=== PATIENT | male | born 2000 | race Caucasian/White ===

== ENCOUNTER → 2018-07-11 07:31 | Outpatient (CLI) | payer OTHER, SELFPAY ==
--- NOTE | 2018-07-11 08:00 | US_ITS ---
US abdomen limited History:Right upper quadrant pain for 5 days Ordering Physician:Jonathan Rodriguez Patient Age: 17 years Comparison:None Findings: Pancreas:The pancreas is not well delineated and may be better evaluated with CT if clinically warranted Liver:Unremarkable. No obvious mass or abnormal fluid collection. No ductal dilatation Right Kidney:Unremarkable. Normal size and echogenicity. No hydronephrosis Gallbladder:There are scattered small polyps along the wall the gallbladder. There is a small amount sludge. No shadowing stones are evident. Common bile duct is normal at 3 mm. No gallbladder wall thickening. IMPRESSION: Small gallbladder polyps suggesting adenomyomatosis of the gallbladder. Small amount of sludge. No shadowing stones
== END ==
PROVIDERS: Visit Provider Nurse Practitioner Family
DX: R10.11 Right upper quadrant pain (principal); R74.8 Abnormal levels of other serum enzymes
CPT/HCPCS: 76705

== ENCOUNTER 2021-11-27 03:22 | Emergency (ER) | payer BC, SELFPAY ==
--- NOTE | 2021-11-27 03:19 | ECG_ITS ---
APPROVED REPORT Exam: Resting ECG HR:81 bpm ECG Measurements Heart Rate 81 AXES NE 148 P 56 QRSd 96 QRS 90 QT 367 T -5 QTc 405 Conclusion SINUS RHYTHM Inf q waves of questionalble significance noted ABNORMAL ECG UNCONFIRMED REPORT Electronically signed by : Ron Harrington MD 11/29/2021 14:47:54
[2021-11-27 03:22] VITALS: BP 154/84; PULSE 88; RESP 18; TEMP 36.8; O2SAT 99; BMI 40.8
--- NOTE | 2021-11-27 03:36 | XR_ITS ---
PROCEDURE INFORMATION: Exam: XR Chest Exam date and time: 11/27/2021 3:55 AM Age: 21 years old Clinical indication: Sternal or substernal pain; Additional info: Chest pain TECHNIQUE: Imaging protocol: Radiologic exam of the chest. Views: 1 view. COMPARISON: No relevant prior studies available. FINDINGS: Lungs: Unremarkable. No consolidation. Pleural spaces: Unremarkable. No pleural effusion. No pneumothorax. Heart/Mediastinum: Unremarkable. No cardiomegaly. Bones/joints: Unremarkable. IMPRESSION: No acute findings.
[2021-11-27 03:55] LABS: Basophils # 0.2 K/mm3 (0-0.2); Basophils % 2.4 % (0.1-2.0); Eosinophils # 0.4 K/mm3 (0.0-0.4); Hematocrit 48.1 % (42.0-52.0); Hemoglobin 16.6 g/dL (14.1-18.0); Lymphocytes # 2.6 K/mm3 (0.7-4.5); Lymphocytes % 36.3 % (10-50); Mean Corpuscular HGB Conc 34.5 g/dL (31.8-35.4); Mean Corpuscular Hemoglobin 32.2 pg (27.0-31.2); Mean Corpuscular Volume 93.2 fl (80-94); Mean Platelet Volume 10.2 fl (7.4-10.4); Monocytes # 0.4 K/mm3 (0.1-1.0); Neutrophils # 3.6 K/mm3 (1.8-7.8); Neutrophils % 49.3 % (37.0-80.0); Platelet Count 336 K/mm3 (142-424); Red Blood Count 5.16 M/mm3 (4.60-6.20); Red Cell Distribution Width 14.1 % (11.5-17.5); White Blood Count 7.2 K/mm3 (4.8-10.8)
[2021-11-27 04:05] LABS: Alanine Aminotransferase 43 U/L (12-78); Albumin Level 4.7 g/dl (3.5-5.0); Albumin/Globulin Ratio 1.5 (1.1-1.8); Alkaline Phosphatase 53 U/L (38-126); Amylase 66 U/L (30-110); Anion Gap 13.7 mEq/L (5-15); Aspartate Amino Transferase 35 U/L (17-59); Blood Urea Nitrogen 13 mg/dl (9-20); Calcium 9.9 mg/dl (8.4-10.2); Carbon Dioxide 26 mmol/L (22.0-30.0); Chloride 106 mmol/L (98-107); Creatinine Clearance Estimated 317 mL/min (50-200); Estimated Glomerular Filt Rate 140 ml/min (>60); GFR (African American) 169 ML/MIN (>60); Globulin 3.2 g/dL (1.3-3.2); Glucose 137 mg/dl (74-100); Lipase 105 U/L (23-300); Magnesium 1.8 mg/dl (1.6-2.3); Potassium 3.7 mmoL/L (3.5-5.1); Sodium 142 mmol/L (136-145); Total Protein,Serum 7.9 g/dl (6.3-8.2)
[2021-11-27 04:10] LABS: Bilirubin,Total < 0.1 mg/dl (0.2-1.3)
[2021-11-27 04:19] VITALS: BP 117/55; PULSE 84; RESP 17; O2SAT 97
[2021-11-27 04:20] LABS: Troponin I < 0.01 ng/ml (0.00-0.034)
[2021-11-27 04:49] LABS: Hemoglobin A1C 5.1 % (4.0-6.0)
[2021-11-27 05:19] VITALS: BP 119/55; PULSE 81; O2SAT 99
[2021-11-27 06:15] VITALS: BP 114/57; PULSE 68; O2SAT 95
[2021-11-27 06:41] LABS: Troponin I < 0.01 ng/ml (0.00-0.034)
--- NOTE | 2021-11-27 06:48 | HMH.EDCP ---
ED Disposition Clinical Impression: Atypical chest pain Disposition: Home, Self-Care Condition on Discharge: Good Instructions: DI for Atypical Chest Pain Additional Instructions: see pcp for follow up Referrals: Provider,Referral, [Primary Care Provider] - - Critical Care Critical Care Time: No Attestation: On 11/27/21, the high probability of a clinically significant, sudden or life threatening deterioration of the following system(s) required my full and direct attention, intervention and personal management. The time I documented below is in addition to time spent performing reported procedures but includes the following listed in this critical care notation. Medical Decision Making - Medical Records Medical records reviewed: Yes: I reviewed the patient's medical records. - Sid Inquiry Pt receiving controlled substance: No Vital Signs: 11/27/21 03:22 Temperature 98.2 F Temperature Source Oral Pulse Rate [Apical] 88 Respiratory Rate 18 Blood Pressure [Right Arm] 154/84 H Blood Pressure Mean [Right Arm] 107 Blood Pressure Source [Right Arm] Automatic Cuff Blood Pressure Position [Right Arm] Sitting 02 Sat by Pulse Oximetry 99 Oxygen Delivery Method Room Air - Lab Data Lab results reviewed: Yes: I reviewed the patient's lab results. Lab Results 11/27/21 03:46: WBC 7.2, RBC 5.16, Hgb 16.6, Hct 48.1, MCV 93.2, MCH 32.2 H, MCHC 34.5, RDW 14.1, Plt Count 336, MPV 10.2, Neut % (Auto) 49.3, Lymph % (Auto) 36.3, [place] % (Auto) 6.0, Eos % (Auto) 6.0, Baso % (Auto) 2.4 H, Neut # (Auto) 3.6, Lymph # (Auto) 2.6, [place] # (Auto) 0.4, Eos # (Auto) 0.4, Baso # (Auto) 0.2 11/27/21 03:46: Sodium 142, Potassium 3.7, Chloride 106, Carbon Dioxide 26, Anion Gap 13.7, BUN 13, Creatinine 0.70, Estimated Creat Clear 317 H, Estimated GFR 140, Est GFR ( Amer) 169, Glucose 137 H, Calcium 9.9, Magnesium 1.8, Total Bilirubin < 0.1 L, AST 35, ALT 43, Alkaline Phosphatase 53, Troponin I < 0.01, Total Protein 7.9, Albumin 4.7, Globulin 3.2, Albumin/Globulin Ratio 1.5, Amylase 66, Lipase 105 11/27/21 03:46: Hemoglobin A1c 5.1 11/27/21 06:11: Troponin I < 0.01 Result diagrams: 11/27/21 03:46 11/27/21 03:46 Orders (Tests/Meds): ED MEDICATIONS Generic Name Dose Route Start Last Admin Trade Name Freq PRN Reason Stop Dose Admin Sodium Chloride 1,000 mls @ 999 mls/hr 11/27/21 03:45 11/27/21 03:40 Sod Chlor 0.9% 1000ml Bag IV 11/27/21 04:45 999 mls/hr .Q1H1M SUNIL Administration Sodium Chloride 8 ml 11/27/21 03:37 Sodium Chloride 0.9% 10ml Vial IV 12/27/21 03:36 NEEDED PRN dilute pepcid Discontinued Medications Generic Name Dose Route Start Last Admin Trade Name Freq PRN Reason Stop Dose Admin Famotidine 20 mg 11/27/21 03:36 11/27/21 03:40 Famotidine 20mg/2ml Vial IV 11/27/21 03:37 20 mg ONCE ONE Administration Ketorolac Tromethamine 30 mg 11/27/21 03:37 11/27/21 03:40 Ketorolac 30mg/Ml Vial IV 11/27/21 03:38 30 mg ONCE ONE Administration Metoclopramide HCl 10 mg 11/27/21 03:37 11/27/21 03:40 Metoclopramide Hcl 10mg/2ml Vial IVP 11/27/21 03:38 10 mg ONCE ONE Administration ORDERS Category Date Time Status Troponin I Q3H Lab 11/27/21 09:45 Ordered - Radiology Data #1 Image(s): Chest Image Reviewed: Yes I have reviewed radiologist's interpretation Preliminary Findings: Normal/NAD - ECG Data Tracing #1 I reviewed this ECG and interpreted as documented below: Normal Sinus Rhythm: Yes Ischemic changes: non-specific ST-T wave changes Medical Decision Narrative: pt with stable labs and xrays with atypical chest pain - will need to see pcp for more eval Chest Pain HPI - General Chief Complaint: Chest Pain Stated Complaint: chest pain Time Seen by Provider: 11/27/21 04:00 Mode of Arrival: Ambulatory Source of Information: Patient, Medical Record Limitations: No Limitations Description of Symptoms (Recalled f
[2021-11-27 07:02] VITALS: BP 114/57; PULSE 68; RESP 20; TEMP 36.9; O2SAT 100
== END 2021-11-27 07:04 | disposition home or self-care (01) ==
PROVIDERS: Emergency Provider Emergency Medicine
DX: R07.9 Chest pain, unspecified (principal); Z82.49 Family history of ischemic heart disease and other diseases of the circulatory system
CPT/HCPCS: 71045; 80053; 82150; 83036; 83690; 83735; 84484; 85025; 93005; 96361; 96374; 96375; 99285

== ENCOUNTER 2022-09-06 05:41 | Emergency (ER) | payer BC, SELFPAY ==
--- NOTE | 2022-09-06 05:41 | ECG_ITS ---
APPROVED REPORT Exam: Resting ECG HR:86 bpm ECG Measurements Heart Rate 86 AXES ND 171 P 56 QRSd 92 QRS 51 QT 354 T 40 QTc 398 Conclusion SINUS RHYTHM NORMAL ECG UNCONFIRMED REPORT Electronically signed by : Ron Harrington MD 09/07/2022 02:53:37
[2022-09-06 05:42] VITALS: BP 157/68; PULSE 97; RESP 16; TEMP 36.6; O2SAT 100; BMI 36.6
--- NOTE | 2022-09-06 05:43 | XR_ITS ---
PROCEDURE INFORMATION: Exam: XR Chest Exam date and time: 09/06/2022 5:40 AM Age: 22 years old Clinical indication: Left-sided; Patient HX: PT C/O left sided chest pain for several days, now states it hurts on the right side; Additional info: Cp TECHNIQUE: Imaging protocol: Radiologic exam of the chest. Views: 2 views. COMPARISON: CR XR CHEST PORTABLE 11/27/2021 3:55 AM FINDINGS: Lungs: Unremarkable. No consolidation. Pleural spaces: Unremarkable. No pleural effusion. No pneumothorax. Heart/Mediastinum: Unremarkable. No cardiomegaly. Bones/joints: Unremarkable. IMPRESSION: No acute findings.
--- NOTE | 2022-09-06 05:54 | CT_ITS ---
PROCEDURE INFORMATION: Exam: CTA Chest With Contrast Exam date and time: 09/06/2022 6:11 AM Age: 22 years old Clinical indication: Pain; Right-sided and left-sided; Additional info: Cp TECHNIQUE: Imaging protocol: Computed tomographic angiography of the chest with contrast. 3D rendering (Not supervised by radiologist): MIP and/or 3D reconstructed images were created by the technologist. Radiation optimization: All CT scans at this facility use at least one of these dose optimization techniques: automated exposure control; mA and/or kV adjustment per patient size (includes targeted exams where dose is matched to clinical indication); or iterative reconstruction. Contrast material: ISOVUE; Contrast volume: 70 ml; Contrast route: INTRAVENOUS (IV); REPORTING DATA: Count of CT and Cardiac NM exams in prior 12 months: This patient has received 0 known CTs and 0 known cardiac nuclear medicine studies in the 12 months prior to the current study. COMPARISON: CR XR CHEST 2V 09/06/2022 5:40 AM FINDINGS: Pulmonary arteries: The main pulmonary artery is normal in caliber. No pulmonary embolism. Aorta: Unremarkable. No aortic aneurysm. No aortic dissection. Lungs: The lungs are clear. The central airways are patent. Pleural spaces: Unremarkable. No pneumothorax. No pleural effusion. Heart: Unremarkable. No cardiomegaly. No pericardial effusion. Lymph nodes: Unremarkable. No enlarged lymph nodes. Bones/joints: Unremarkable. No acute fracture. Soft tissues: Bilateral gynecomastia. IMPRESSION: 1. The main pulmonary artery is normal in caliber. No pulmonary embolism. 2. The lungs are clear. The central airways are patent.
[2022-09-06 06:00] VITALS: BP 143/69; PULSE 91; O2SAT 99
--- NOTE | 2022-09-06 06:00 | HMH.EDCP ---
Discharge Plan Disposition Patient Disposition: Home, Self-Care Chief Complaint: Chest Pain Prescriptions Prescriptions: No Action No Known Home Medications Clinical Impressions Clinical Impression: Atypical chest pain Instructions Patient Instructions: DI for Atypical Chest Pain Discharge ED Provider: Windy THOMAS)Christofer Chest Pain HPI General Chief Complaint: Chest Pain Stated Complaint: cp Time Seen by Provider: 09/06/22 06:00 Mode of Arrival: Ambulatory Source of Information: Patient and Medical Record Limitations: No Limitations Description of Symptoms (Recalled from ER Triage Doc. by RN): pt c/o pain that started in lt armpit that radiates to his chest since saturday History of Present Illness HPI narrative: pt with lt sided chest pain with sob - no fever or rash and no trauma MD complaint: chest pain indicative of cardiac Onset (ago): day(s) Duration: intermittent Activity at onset: during rest Pain location: left chest Severity: moderate Quality: sharp Risk Factors for CAD: Family Hx of CAD Treatments prior to or on arrival for Cardiac Chest Pain: none DINORAH Score for Non-Stemi Age of Patient: <30 years old Heart Rate: 70-89 bpm Systolic Blood Pressure: 120-139 mmhg Serum Creatinine: 0.80-1.19 mg/dl CHF [place] Class: I-No CHF Other Risk Factors: None Non-Stemi Risk Score: 50 Risk Stratification: 1-108 = Low Risk Related Data Home Medications Medication Instructions Recorded Confirmed No Known Home Medications 09/03/18 09/03/18 Allergies Allergy/AdvReac Type Severity Reaction Status Date / Time No Known Allergies Allergy Verified 09/03/18 13:26 [facility] Disclaimer: The information contained in this section may have been updated after the patient was seen, as this information can be updated by other users. 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 Smoking Status: Never smoker alcohol intake: never substance use type: denies use current occupational status: employed Travel in the last 8 weeks: None household members: family housing: house ROS Obtained: Yes All systems reviewed & no additional complaints except as documented Physical Exam General General appearance: alert Head Head exam: normocephalic Eye Eye exam: Present PERRL and EOMI ENT ENT exam: Present mucous membranes moist Neck Neck exam: Present trachea midline Respiratory Respiratory exam: Absent respiratory distress Cardiovascular Cardiovascular exam: Present regular rate Abdominal Exam Abdominal exam: Present soft Extremities Exam Extremities exam: Present full ROM; Absent calf tenderness Neurological Exam Neurological exam: Present alert, oriented X3 and CN II-XII intact; Absent motor sensory deficit Psychiatric Psychiatric exam: Present normal affect Skin Skin exam: Absent rash Medical Decision Making Medical Records Medical records reviewed: Yes I reviewed the patient's medical records. Sid Inquiry Pt receiving controlled substance: No Vital Signs: 09/06/22 05:42 09/06/22 06:00 09/06/22 06:30 Temperature 97.9 F Temperature Source Oral Pulse Rate 91 H 73 Pulse Rate [Right] 97 H Respiratory Rate 16 Blood Pressure 143/69 H 128/51 L Blood Pressure [Right Arm] 157/68 H Blood Pressure Mean Blood Pressure Mean [Right Arm] 97 02 Sat by Pulse Oximetry 100 99 98 Oxygen Delivery Method Room Air Room Air 09/06/22 07:30 Temperature Temperature Source Pulse Rate 73 Pulse Rate [Right] Respiratory Rate Blood Pressure 129/66 Blood Pressure [Right Arm] Blood Pressure Mean 81 Blood Pressure Mean [Right Arm] 02 Sat by Pulse Oximetry 98 Oxygen Delivery Method Room Air Lab Data Lab results reviewed: Yes I reviewed the patient's lab results. Lab Results 09/06/22 05:45: WBC 7.2, RBC 5.12, Hgb 15.9, Hct 49.3, MCV 96.2 H, MCH 31.0, MCHC 32.2, RDW 13.6, Plt Count 343, MPV 9.4, Neut % (Auto) 48.9, Lymph % (Auto) 40.4, [place] % (Auto) 5.3, Eos % (Auto) 4.3, Baso %
[2022-09-06 06:04] LABS: Basophils # 0.1 K/mm3 (0-0.2); Basophils % 1.1 % (0.1-2.0); Eosinophils # 0.3 K/mm3 (0.0-0.4); Eosinophils % 4.3 % (0.1-12.0); Hematocrit 49.3 % (42.0-52.0); Hemoglobin 15.9 g/dL (14.1-18.0); Lymphocytes # 2.9 K/mm3 (0.7-4.5); Lymphocytes % 40.4 % (10-50); Mean Corpuscular HGB Conc 32.2 g/dL (31.8-35.4); Mean Corpuscular Volume 96.2 fl (80-94); Mean Platelet Volume 9.4 fl (7.4-10.4); Monocytes # 0.4 K/mm3 (0.1-1.0); Monocytes % 5.3 % (1.7-9.3); Neutrophils # 3.5 K/mm3 (1.8-7.8); Neutrophils % 48.9 % (37.0-80.0); Platelet Count 343 K/mm3 (142-424); Red Blood Count 5.12 M/mm3 (4.60-6.20); Red Cell Distribution Width 13.6 % (11.5-17.5); White Blood Count 7.2 K/mm3 (4.8-10.8)
[2022-09-06 06:09] LABS: Chloride 103 mmol/L (98-107); Sodium 142 mmol/L (136-145)
[2022-09-06 06:10] LABS: Potassium 3.3 mmoL/L (3.5-5.1)
[2022-09-06 06:12] LABS: Blood Urea Nitrogen 13 mg/dl (9-20); Creatinine Clearance Estimated 219 mL/min (50-200); Estimated Glomerular Filt Rate 104 ml/min (>60); GFR (African American) 125 ML/MIN (>60)
[2022-09-06 06:13] LABS: Anion Gap 13.3 mEq/L (5-15); Calcium 9.6 mg/dl (8.4-10.2); Carbon Dioxide 29 mmol/L (22.0-30.0); Glucose 65 mg/dl (74-100)
[2022-09-06 06:27] LABS: Troponin I < 0.01 ng/ml (0.00-0.034)
[2022-09-06 06:30] VITALS: BP 128/51; PULSE 73; O2SAT 98
[2022-09-06 06:31] LABS: Free T4 (Free Thyroxine) 1.11 ng/dl (0.78-2.19)
[2022-09-06 06:44] LABS: Thyroid Stimulating Hormone 4.11 uIU/mL (0.465-4.68)
--- NOTE | 2022-09-06 07:24 | PC.NURSE ---
Assumed pt care. Pt updated on ED visit, awaiting CT results. No further complaints at this time.
[2022-09-06 07:30] VITALS: BP 129/66; PULSE 73; O2SAT 98
--- NOTE | 2022-09-06 07:42 | PC.NURSE ---
MD to bedside discussing final results and pending discharge.
[2022-09-06 07:44] VITALS: BP 129/66; PULSE 74; RESP 16; TEMP 36.6; O2SAT 99
== END 2022-09-06 07:51 | disposition home or self-care (01) ==
PROVIDERS: Emergency Provider Emergency Medicine
DX: R07.89 Other chest pain (principal)
CPT/HCPCS: 71046; 71275; 80048; 84439; 84443; 84484; 85025; 93005; 96374; 99285; Q9967

== ENCOUNTER 2022-11-17 04:08 | Emergency (ER) | payer BC, SELFPAY ==
[2022-11-17 04:09] VITALS: BP 142/90; PULSE 76; RESP 16; TEMP 36.6; O2SAT 98; BMI 38.0
[2022-11-17 04:16] VITALS: BP 142/90; PULSE 86; O2SAT 99
--- NOTE | 2022-11-17 04:23 | CT_ITS ---
PROCEDURE INFORMATION: Exam: CT Lumbar Spine Without Contrast Exam date and time: 11/17/2022 4:34 AM Age: 22 years old Clinical indication: Low back pain; Additional info: Pain radiating RT leg TECHNIQUE: Imaging protocol: Computed tomography of the lumbar spine without contrast. Radiation optimization: All CT scans at this facility use at least one of these dose optimization techniques: automated exposure control; mA and/or kV adjustment per patient size (includes targeted exams where dose is matched to clinical indication); or iterative reconstruction. REPORTING DATA: Count of CT and Cardiac NM exams in prior 12 months: This patient has received [address] and 0 known cardiac nuclear medicine studies in the 12 months prior to the current study. COMPARISON: No relevant prior studies available. FINDINGS: Bones/joints: No acute fracture. Normal alignment. There is a 4-5 mm median disc protrusion with calcified annulus at L5-S1. Soft tissues: Unremarkable. IMPRESSION: 1. Degenerative disc disease at L5-S1 with a 5 mm median disc protrusion. 2. No acute findings. No acute fracture or dislocation.
--- NOTE | 2022-11-17 04:31 | PC.NURSE ---
patient gone to RAD at this time.
[2022-11-17 04:38] LABS: Basophils % 0.5 % (0.1-2.0); Eosinophils # 0.5 K/mm3 (0.0-0.4); Eosinophils % 5.4 % (0.1-12.0); Hematocrit 47.6 % (42.0-52.0); Hemoglobin 15.6 g/dL (14.1-18.0); Lymphocytes # 3.1 K/mm3 (0.7-4.5); Lymphocytes % 36.9 % (10-50); Mean Corpuscular HGB Conc 32.7 g/dL (31.8-35.4); Mean Corpuscular Hemoglobin 30.9 pg (27.0-31.2); Mean Corpuscular Volume 94.2 fl (80-94); Mean Platelet Volume 8.9 fl (7.4-10.4); Monocytes # 0.3 K/mm3 (0.1-1.0); Monocytes % 3.1 % (1.7-9.3); Neutrophils # 4.5 K/mm3 (1.8-7.8); Neutrophils % 54.1 % (37.0-80.0); Platelet Count 284 K/mm3 (142-424); Red Blood Count 5.05 M/mm3 (4.60-6.20); Red Cell Distribution Width 13.9 % (11.5-17.5); White Blood Count 8.3 K/mm3 (4.8-10.8)
[2022-11-17 04:46] LABS: Alanine Aminotransferase 41 U/L (12-78); Albumin/Globulin Ratio 1.5 (1.1-1.8); Alkaline Phosphatase 57 U/L (38-126); Anion Gap 18.6 mEq/L (5-15); Aspartate Amino Transferase 35 U/L (17-59); Bilirubin,Total 0.4 mg/dl (0.2-1.3); Blood Urea Nitrogen 14 mg/dl (9-20); Calcium 9.6 mg/dl (8.4-10.2); Carbon Dioxide 28 mmol/L (22.0-30.0); Chloride 100 mmol/L (98-107); Creatinine Clearance Estimated 256 mL/min (50-200); Estimated Glomerular Filt Rate 119 ml/min (>60); GFR (African American) 144 ML/MIN (>60); Globulin 3.4 g/dL (1.3-3.2); Glucose 103 mg/dl (74-100); Potassium 3.6 mmoL/L (3.5-5.1); Sodium 143 mmol/L (136-145); Total Protein,Serum 8.4 g/dl (6.3-8.2)
[2022-11-17 05:05] LABS: Procalcitonin 0.038 ng/mL (0.0-2.0)
[2022-11-17 05:13] LABS: Erythrocyte Sedimentation Rate 5 mm/hr (0-15)
--- NOTE | 2022-11-17 06:12 | HMH.EDBACK ---
Discharge Plan Disposition Patient Disposition: Home, Self-Care Prescriptions Prescriptions: New prednisone [prednisone] 20 mg tablet 20 mg PO BID Qty: 10 0RF ketorolac 10 mg tablet 10 mg PO Q8H PRN (Reason: pain) 3 Days Qty: 10 0RF cyclobenzaprine 10 mg tablet 10 mg PO BID PRN (Reason: muscle spasm) Qty: 10 0RF Referrals Follow up/Referrals: Provider,Referral, MD [Primary Care Provider] - See instructions Clinical Impressions Clinical Impression: Lumbar radiculopathy Instructions Patient Instructions: DI for Back Pain With Sciatica Discharge ED Provider: Windy (ED)Christofer Back Pain HPI General Chief Complaint: Back Pain/Injury Stated Complaint: Low back pain, pain down leg, tick bite 2 wks ago Time Seen by Provider: 11/17/22 05:30 Mode of Arrival: Ambulatory Source of Information: Patient and Medical Record Limitations: No Limitations Description of Symptoms (Recalled from ER Triage Doc. by RN): pt c/o lower back pain radiating down rt leg x 2 weeks pt denies any trauma or accident. History of Present Illness HPI Narrative: lower back pain over the last 2 weeks with rad to lower ext - no cauda equina sx and no fever/rash or trauma - MD Complaint: back pain Onset (ago): day(s) Duration: intermittent Similar Symptoms Previously: No Location: lumbar spine Severity: moderate Quality: sharp Radiation: right leg Exacerbating factors: movement Associated symptoms: denies other symptoms Related Data Previous Rx's Medication Instructions Recorded cyclobenzaprine 10 mg tablet 10 mg PO BID PRN muscle spasm #10 11/17/22 tabs ketorolac 10 mg tablet 10 mg PO Q8H PRN pain 3 days #10 11/17/22 tabs prednisone 20 mg tablet 20 mg PO BID #10 tabs 11/17/22 Allergies Allergy/AdvReac Type Severity Reaction Status Date / Time No Known Allergies Allergy Verified 09/03/18 13:26 [facility] Disclaimer: The information contained in this section may have been updated after the patient was seen, as this information can be updated by other users. 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 Smoking Status: Never smoker alcohol intake: never substance use type: denies use current occupational status: employed Travel in the last 8 weeks: None household members: family housing: house ROS Obtained: Yes All systems reviewed & no additional complaints except as documented Physical Exam General General appearance: alert Head Head exam: normocephalic Eye Eye exam: Present PERRL and EOMI ENT ENT exam: Present mucous membranes moist Neck Neck exam: Present trachea midline Respiratory Respiratory exam: Absent respiratory distress Cardiovascular Cardiovascular exam: Present regular rate Abdominal Exam Abdominal exam: Present soft; Absent tenderness or guarding Extremities Exam Extremities exam: Present full ROM Back Exam Back exam: Present tenderness; Absent full ROM Neurological Exam Neurological exam: Present alert, oriented X3 and CN II-XII intact; Absent motor sensory deficit Psychiatric Psychiatric exam: Present normal affect Skin Skin exam: Absent rash Medical Decision Making Medical Records Medical records reviewed: Yes I reviewed the patient's medical records. Sid Inquiry Pt receiving controlled substance: No Vital Signs: 11/17/22 04:09 11/17/22 04:16 Temperature 98 F Temperature Source Oral Pulse Rate 86 Pulse Rate [Right] 76 Respiratory Rate 16 Blood Pressure 142/90 H Blood Pressure [Right Arm] 142/90 H Blood Pressure Mean [Right Arm] 107 02 Sat by Pulse Oximetry 98 99 Lab Data Lab results reviewed: Yes I reviewed the patient's lab results. Lab Results 11/17/22 04:32: WBC 8.3, RBC 5.05, Hgb 15.6, Hct 47.6, MCV 94.2 H, MCH 30.9, MCHC 32.7, RDW 13.9, Plt Count 284, MPV 8.9, Neut % (Auto) 54.1, Lymph % (Auto) 36.9, [place] % (Auto) 3.1, Eos % (Auto) 5.4, Baso % (Auto) 0.5, Neut # (Auto) 4.5, Lymph # (Auto) 3.1, [place] # (Auto) 0.3, Eos # (Auto) 0.5 H, Baso # (Auto)
[2022-11-17 06:16] VITALS: BP 137/81; PULSE 72; RESP 16; TEMP 36.6; O2SAT 98
== END 2022-11-17 06:27 | disposition home or self-care (01) ==
PROVIDERS: Emergency Provider Emergency Medicine
DX: M54.16 Radiculopathy, lumbar region (principal)
CPT/HCPCS: 72131; 80053; 84145; 85025; 85651; 86140; 99284; 99285

== ENCOUNTER 2022-12-30 18:27 | Emergency (ER) | payer BC, SELFPAY ==
[2022-12-30 18:40] VITALS: BP 141/63; PULSE 99; RESP 20; TEMP 37; O2SAT 99; BMI 38.0
--- NOTE | 2022-12-30 19:00 | EXP.UTC ---
Discharge Plan Disposition Patient Disposition: Home, Self-Care Condition: Good Prescriptions Prescriptions: New amoxicillin 875 mg tablet 875 mg PO BID Qty: 20 0RF ciprofloxacin-dexamethasone [Ciprodex] 0.3-0.1 % drops,suspension 4 drp otic (ear) Q12H 7 Days Qty: 7.5 0RF Rx Instructions: in left ear Referrals Follow up/Referrals: Provider,Referral, MD [Primary Care Provider] - See instructions Activity Restrictions/Add. Instructions Additional Instructions/Restrictions: Use drops as prescribed Take oral antibiotics as prescribed Follow up with ENT if no improvement or any worsening of symptoms Straight to ER if any life threatening symptoms Clinical Impressions Clinical Impression: Otitis media Qualifiers: Otitis media type: unspecified Laterality: left Qualified Code(s): H66.92 - Otitis media, unspecified, left ear Otitis externa Qualifiers: Otitis externa type: unspecified type Chronicity: unspecified Laterality: left Qualified Code(s): H60.92 - Unspecified otitis externa, left ear Instructions Patient Instructions: Middle Ear Infection, DI for Otitis Externa Discharge ED Provider: Minerva Moran [facility] General Stated complaint: LT ear feels 'stopped up Mode of Arrival: Ambulatory Source of Information: Patient Limitations: No Limitations Time Seen by Provider: 12/30/22 19:00 Description of Symptoms (Recalled from Triage Doc. by RN): PATIENT C/O DECREASED HEARING AND RINGING TO LEFT EAR THAT STARTED SATURDAY HEENT Symptoms (Recalled from RN notes): Yes Resp Symptoms (Recalled from RN notes): No Skin Symptoms (Recalled from RN notes): No MS Symptoms (Recalled from RN notes): No Functional Status (Recalled from RN notes): WNL History of Present Illness Provider Complaint: Patient states that he has been having pain in his left ear for several days that has continued to get worse State that he noticed it felt full and had decreased hearing in it States that he tried to clean it out with a qtip and the pain got worse so he came in to get it checked out thinking he may have an ear infection Related Data Previous Rx's Medication Instructions Recorded amoxicillin 875 mg tablet 875 mg PO BID #20 tabs 12/30/22 ciprofloxacin 0.3 %-dexamethasone 4 drp otic (ear) Q12H 7 days #7.5 12/30/22 0.1 % ear drops,suspension mL (Ciprodex) Allergies Allergy/AdvReac Type Severity Reaction Status Date / Time No Known Allergies Allergy Verified 09/03/18 13:26 Worker's Comp Is this a Worker's Comp case?: No [facility] Disclaimer: The information contained in this section may have been updated after the patient was seen, as this information can be updated by other users. 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 Smoking Status: Never smoker alcohol intake: never substance use type: denies use current occupational status: employed Travel in the last 8 weeks: None household members: family housing: house ROS Obtained: Yes All systems reviewed & no additional complaints except as documented and Yes Systems reviewed as appropriate & no additional complaints except as documented Constitutional Constitutional: Reports system reviewed and no additional complaints, except as documented and Reports as per HPI ENT Ears, Nose, Mouth, and Throat: Reports system reviewed and no additional complaints, except as documented, Reports as per HPI and Reports otalgia Cardiovascular Cardiovascular: Reports system reviewed and no additional complaints, except as documented and Reports as per HPI Respiratory Respiratory: Reports system reviewed and no additional complaints, except as documented and Reports as per HPI Gastrointestinal Gastrointestingal: Reports system reviewed and no additional complaints, except as documented and as per HPI Musculoskeletal Musculoskeletal: Reports system reviewed and no additional complaints, except as documented and Reports as per HPI Neurologic Neurologic: Reports system reviewed and no
[2022-12-30 19:12] VITALS: BP 141/63; PULSE 99; RESP 20; TEMP 37; O2SAT 99
== END 2022-12-30 19:16 | disposition home or self-care (01) ==
PROVIDERS: Emergency Provider Nurse Practitioner
DX: H66.92 Otitis media, unspecified, left ear (principal); H60.92 Unspecified otitis externa, left ear
CPT/HCPCS: 99204; 99212; G0463

== ENCOUNTER 2023-05-09 03:55 | Emergency (ER) | payer BC, SELFPAY ==
[2023-05-09 04:04] VITALS: BP 148/98; PULSE 80; RESP 18; TEMP 36.9; O2SAT 97; BMI 40.0
--- NOTE | 2023-05-09 04:05 | XR_ITS ---
PROCEDURE INFORMATION: Exam: XR Chest Exam date and time: 05/09/2023 4:04 AM Age: 22 years old Clinical indication: Injury or trauma; Blunt trauma (contusions or hematomas); Patient HX: Fall from bed Saturday, C/O worsening left sided pain; Additional info: Fall, L rib pain TECHNIQUE: Imaging protocol: Radiologic exam of the chest. Views: 2 views. COMPARISON: CT ANGIO CHEST PE PROTOCOL 09/06/2022 6:11 AM FINDINGS: Lungs: Unremarkable. No consolidation. Pleural spaces: Unremarkable. No pleural effusion. No pneumothorax. Heart/Mediastinum: Unremarkable. No cardiomegaly. Bones/joints: Unremarkable. IMPRESSION: No acute findings.
--- NOTE | 2023-05-09 04:11 | HMH.EDGENADL ---
Discharge Plan Disposition Patient Disposition: Home, Self-Care Condition: Good Prescriptions Prescriptions: No Action amoxicillin 875 mg tablet 875 mg PO BID Qty: 20 0RF ciprofloxacin-dexamethasone [Ciprodex] 0.3-0.1 % drops,suspension 4 drp otic (ear) Q12H 7 Days Qty: 7.5 0RF Rx Instructions: in left ear Referrals Follow up/Referrals: Provider,Referral, MD [Primary Care Provider] - See instructions Activity Restrictions/Add. Instructions Additional Instructions/Restrictions: You were evaluated in the emergency department today. Please take Tylenol and ibuprofen at home as needed for pain. Return to the emergency department for new or worsening symptoms. Clinical Impressions Clinical Impression: Contusion of rib on left side Instructions Patient Instructions: DI for Rib Contusion, DI for Acute Pain -- Adult Discharge ED Provider: Hayley Meade General Adult HPI General Chief complaint: PAIN Stated complaint: AO 05/07/23 2300 fell out of bed injury left rib Time Seen by Provider: 05/09/23 03:58 Mode of Arrival: Ambulatory Limitations: No Limitations Description of Symptoms (Recalled from ER Triage Doc. by RN): Pt states he rolled out of bed Saturday night and hit his left side on his bedside table. Pt reports worsening pain since saturday, and wants to make sure he didn't break his rib. Pt denies SOA, or any other symptoms. History of Present Illness HPI narrative: This patient is a 22-year-old male who denies significant past medical history presenting to the emergency department for evaluation with concern for left rib pain that is worse with movement. He states that on Saturday, he rolled out of bed and hit his left side on his bedside table. The pain was initially fine, but it is gradually gotten worse over the last few days. Given this, he decided to come in for evaluation to make sure that he does not have a broken rib. He denies any other pain or injuries. He denies any shortness of breath. No other concerns noted at this time. Related Data Previous Rx's Medication Instructions Recorded amoxicillin 875 mg tablet 875 mg PO BID #20 tabs 12/30/22 ciprofloxacin 0.3 %-dexamethasone 4 drp otic (ear) Q12H 7 days #7.5 12/30/22 0.1 % ear drops,suspension mL (Ciprodex) Allergies Allergy/AdvReac Type Severity Reaction Status Date / Time No Known Allergies Allergy Verified 09/03/18 13:26 [facility] Disclaimer: The information contained in this section may have been updated after the patient was seen, as this information can be updated by other users. 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 Smoking Status: Unknown if ever smoked alcohol intake: never substance use type: denies use current occupational status: employed Travel in the last 8 weeks: None household members: family housing: house ROS Obtained: Yes All systems reviewed & no additional complaints except as documented Physical Exam General General appearance: alert and in no apparent distress Head Head exam: atraumatic and normocephalic Eye Eye exam: Present normal appearance, PERRL and EOMI ENT ENT exam: Present normal exam, normal oropharynx, mucous membranes moist and normal external ear exam Neck Neck exam: Present normal inspection, full ROM and trachea midline; Absent tenderness Chest Chest inspection: Present symmetric chest wall rise and tenderness (Left chest wall tenderness. Pain is reproducible with palpation. No significant bruising, deformity, or palpable crepitus.) Respiratory Respiratory exam: Present normal lung sounds bilaterally; Absent respiratory distress, wheezes, stridor or accessory muscle use Cardiovascular Cardiovascular exam: Present regular rate and normal rhythm Abdominal Exam Abdominal exam: Present soft; Absent distention, tenderness or guarding Extremities Exam Extremities exam: Present normal inspection, full ROM and normal capillary refill;
[2023-05-09 05:48] VITALS: BP 128/85; PULSE 75; RESP 18; TEMP 36.8; O2SAT 96
== END 2023-05-09 05:49 | disposition home or self-care (01) ==
PROVIDERS: Emergency Provider Emergency Medicine
DX: S20.212A Contusion of left front wall of thorax, initial encounter (principal); E66.9 Obesity, unspecified; W06.XXXA Fall from bed, initial encounter
CPT/HCPCS: 71046; 99283

== ENCOUNTER 2023-06-15 03:53 | Emergency (ER) | payer BC, SELFPAY ==
[2023-06-15 04:02] VITALS: BP 156/86; PULSE 88; RESP 18; TEMP 36.8; O2SAT 98; BMI 40.6
[2023-06-15 04:20] VITALS: BP 156/86; PULSE 87; RESP 18; TEMP 36.8
--- NOTE | 2023-06-15 04:42 | ED_ITS ---
Discharge Plan Disposition Patient Disposition: Home, Self-Care Prescriptions Prescriptions: New amoxicillin-pot clavulanate 875-125 mg tablet 1 tab PO BID Qty: 20 0RF No Action amoxicillin 875 mg tablet 875 mg PO BID Qty: 20 0RF ciprofloxacin-dexamethasone [Ciprodex] 0.3-0.1 % drops,suspension 4 drp otic (ear) Q12H 7 Days Qty: 7.5 0RF Rx Instructions: in left ear Activity Restrictions/Add. Instructions Additional Instructions/Restrictions: You were evaluated in the emergency department today. Please follow-up with a primary care provider over the next 3 days for reassessment. legal support specialist your prescription for antibiotic and take as prescribed. Return to the emergency department for any new or worsening symptoms. Clinical Impressions Clinical Impression: Cellulitis of face Instructions Patient Instructions: DI for Cellulitis -- Adult Discharge ED Provider: Hayley Meade General Adult HPI General Chief complaint: PAIN Stated complaint: Lump on left jaw for 2 days Time Seen by Provider: 06/15/23 04:07 Mode of Arrival: Ambulatory Source of Information: Patient Limitations: No Limitations Description of Symptoms (Recalled from ER Triage Doc. by RN): 156/86 History of Present Illness HPI narrative: This patient is a 22-year-old male who denies significant past medical history presenting to the emergency department for evaluation with concern for a bump on the left side of his lower jaw. Patient reports that he noticed this yesterday, and it is painful to the touch. He states that it feels like a lump just under his skin on the lower side of his face. He denies any dental issues or dental pain. No significant oral swelling. No systemic symptoms such as fevers, chills, or other concerns. 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 No difficulty swallowing, trismus, or other issues noted. Related Data Previous Rx's Medication Instructions Recorded amoxicillin 875 mg tablet 875 mg PO BID #20 tabs 12/30/22 ciprofloxacin 0.3 %-dexamethasone 4 drp otic (ear) Q12H 7 days #7.5 12/30/22 0.1 % ear drops,suspension mL (Ciprodex) amoxicillin 875 mg-potassium 1 tab PO BID #20 tabs 06/15/23 clavulanate 125 mg tablet Allergies Allergy/AdvReac Type Severity Reaction Status Date / Time No Known Allergies Allergy Verified 09/03/18 13:26 [facility] Disclaimer: The information contained in this section may have been updated after the patient was seen, as this information can be updated by other users. 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 Smoking Status: Never smoker alcohol intake: never substance use type: denies use current occupational status: employed Travel in the last 8 weeks: None household members: family housing: house ROS Obtained: Yes All systems reviewed & no additional complaints except as documented Physical Exam General General appearance: alert, in no apparent distress and obese Head Head exam: atraumatic, normocephalic and other (Mild erythema to the left side of the lower face with a very small pea-sized lump that is tender just under the skin. No palpable fluctuance. No significant swelling.) Eye Eye exam: Present normal appearance, PERRL and EOMI ENT ENT exam: Present normal exam, normal oropharynx, mucous membranes moist, normal external ear exam and other (No trismus, subungual swelling, drooling, or other concerns) Neck Neck exam: Present normal inspection, full ROM and trachea midline; Absent tenderness Chest Chest inspection: Present normal inspection and symmetric chest wall rise; Absent tenderness Respiratory Respiratory exam: Present normal lung sounds bilaterally; Absent respiratory d istress, wheezes, stridor or accessory muscle use Cardiovascular Cardiovascular exam: Present regular rate and normal rhythm Abdominal Exam Abdominal exam: Present soft; Absent distention, tenderness or guarding Extremities Exam Extremities exam: Present normal inspection, full ROM and normal capillary refill; Absent tenderness or edema Back Exam Back exam: Present normal inspection and full ROM; Absent tenderness Neurological Exam Neurological exam: Present alert, oriented X3, CN II-XII intact and normal gait; Absent motor sensory deficit Psychiatric Psychiatric exam: Present normal affect and normal mood Skin Skin exam: Present warm and dry Medical Decision Making Medical Records Medical records reviewed: Yes I reviewed the patient's medical records. Sid Inquiry Pt receiving controlled substance: No Vital Signs: 06/15/23 04:02 06/15/23 04:20 Temperature 98.2 F 98.2 F Temperature Source Oral Oral Pulse Rate 87 Pulse Rate [Radial] 88 Respiratory Rate 18 18 Blood Pressure 156/86 H Blood Pressure [Right Arm] 156/86 H Blood Pressure Mean [Right Arm] 109 02 Sat by Pulse Oximetry 98 Oxygen Delivery Method Room Air Lab Data Lab results reviewed: Yes I reviewed the patient's lab results. Medical Decision Narrative: In summary, this patient is a 22-year-old male presenting to the Emergency Department for evaluation of a lump to his left lower jaw. Differential diagnoses considered include but are not limited to cellulitis, abscess, sialoadenitis, lymphadenopathy. Ruling out the most morbid conditions drove assessment. It should be noted patient's history includes obesity which is not at goal therapy. This complicates all aspects of care by increasing patient's risk for morbidity. On exam, the patient is well-appearing with reassuring vital signs on cardiac telemetry. He is mildly hypertensive, but he also admits that he is anxious. He has a very tiny pea-sized lump on the left lower jaw with some overlying erythema. This could simply be cystic acne or an ingrown hair. No concerns for drainable abscess based on clinical exam. Given the mild overlying erythema, it is possibly could be developing a mild cellulitis. No alarm findings concerning for deep space infection. Based on reassuring history and exam, I do not feel labs or imaging are indicated. Given this, feel the patient appropriate for discharge with prescription for Augmentin. He was also given referral to primary care, as he unfortunately does not have a primary care provider. I counseled him on the importance of outpatient follow-up. He was given strict return precautions, and he was discharged in stable condition after all questions were answered. Critical Care Critical Care Time Critical Care Time: No
== END 2023-06-15 04:26 | disposition home or self-care (01) ==
LOC: ER 04:25
PROVIDERS: Emergency Provider Emergency Medicine
DX: L03.211 Cellulitis of face (principal)
CPT/HCPCS: 99283

== ENCOUNTER 2023-07-13 03:50 | Emergency (ER) | payer BC, SELFPAY ==
[2023-07-13 03:51] VITALS: BP 136/79; PULSE 77; RESP 18; TEMP 36.6; O2SAT 98; BMI 40.6
--- NOTE | 2023-07-13 03:53 | ECG_ITS ---
APPROVED REPORT Exam: Resting ECG HR:80 bpm ECG Measurements Heart Rate 80 AXES VA 152 P 48 QRSd 108 QRS 102 QT 373 T -4 QTc 409 Conclusion SINUS RHYTHM RIGHT AXIS DEVIATION - ? lead placement issues Inferior q waves noted - questionable significance given their morphology ABNORMAL ECG UNCONFIRMED REPORT Electronically signed by : Ron Harrington MD 07/13/2023 21:17:07
[2023-07-13 03:59] VITALS: PULSE 77
--- NOTE | 2023-07-13 03:59 | ED_ITS ---
Discharge Plan Disposition Patient Disposition: Home, Self-Care Prescriptions Prescriptions: No Action amoxicillin 875 mg tablet 875 mg PO BID Qty: 20 0RF ciprofloxacin-dexamethasone [Ciprodex] 0.3-0.1 % drops,suspension 4 drp otic (ear) Q12H 7 Days Qty: 7.5 0RF Rx Instructions: in left ear amoxicillin-pot clavulanate 875-125 mg tablet 1 tab PO BID Qty: 20 0RF Activity Restrictions/Add. Instructions Additional Instructions/Restrictions: Please follow-up with your primary care provider. Please return to the emerg ency department if you develop any new or worsening symptoms or become concerned for your health. Clinical Impressions Clinical Impression: Chest pain, Numbness and tingling of left hand Discharge ED Provider: Devon Perez Adult HPI General Chief complaint: Chest Pain Stated complaint: chest pain, arm tingling x7 days Time Seen by Provider: 07/13/23 03:55 Mode of Arrival: Family Vehicle Source of Information: Patient Limitations: No Limitations Description of Symptoms (Recalled from ER Triage Doc. by RN): 22 y/o male presents to ED for chest tenderness and L arm/wrist pain X 7 days. History of Present Illness HPI narrative: 22-year-old male with history of obesity presents with multiple complaints. He reports that he works at [employer] and he hit his chest on something at work a few days ago. Since that time he has been having left-sided chest pain. It is tender to palpation at this point as well. He also reports that he has started developing left upper extremity symptoms. He reports that he has some tingling in the left pinky finger and some soreness in his left elbow. Given the chest pain and left arm symptoms, he wanted to be seen in the ER. He also reports that his blood pressure has been higher. Related Data Previous Rx's Medication Instructions Recorded amoxicillin 875 mg tablet 875 mg PO BID #20 tabs 12/30/22 ciprofloxacin 0.3 %-dexamethasone 4 drp otic (ear) Q12H 7 days #7.5 12/30/22 0.1 % ear drops,suspension mL (Ciprodex) amoxicillin 875 mg-potassium 1 tab PO BID #20 tabs 06/15/23 clavulanate 125 mg tablet Allergies Allergy/AdvReac Type Severity Reaction Status Date / Time No Known Allergies Allergy Verified 09/03/18 13:26 [facility] Disclaimer: The information contained in this section may have been updated after the patient was seen, as this information can be updated by other users. 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 Smoking Status: Never smoker alcohol intake: never substance use type: denies use current occupational status: employed Travel in the last 8 weeks: None household members: family housing: house ROS Obtained: Yes All systems reviewed & no additional complaints except as documented Physical Exam General General appearance: alert and in no apparent distress Head Head exam: atraumatic and normocephalic Eye Eye exam: Present normal appearance, PERRL and EOMI ENT ENT exam: Present normal oropharynx and normal external ear exam Neck Neck exam: Present normal inspection and full ROM Chest Chest inspection: Present normal inspection, symmetric chest wall rise and tenderness (Focal tenderness under the left nipple) Respiratory Respiratory exam: Present normal lung sounds bilaterally; Absent respiratory distress Cardiovascular Cardiovascular exam: Present regular rate and normal rhythm Abdominal Exam Abdominal exam: Present soft; Absent distention, tenderness or guarding Extremities Exam Extremities exam: Present other (Left upper extremity: Mild tenderness in the left ulnar canal, mild tingling the left pinky finger, intact strength, normal capillary refill.) Back Exam Back exam: Present normal inspection; Absent tenderness Neurological Exam Neurological exam: Present alert and oriented X3; Absent motor sensory deficit Psychiatric Psychiatric exam: Present normal affect and normal mood Skin Skin exam: Present warm, dry and normal color Lymphatic Lymphatic Findings: no adenopathy Medical Decision Making Medical Records Medical records reviewed: Yes I reviewed the patient's medical records. Sid Inquiry Pt receiving controlled substance: No Sid was queried for this patient: No Vital Signs: 07/13/23 03:51 07/13/23 03:59 07/13/23 04:02 Temperature 97.8 F 97.8 F Temperature Source Oral Oral Pulse Rate 77 71 Pulse Rate [Left] 77 Respiratory Rate 18 18 Blood Pressure 131/72 Blood Pressure [Right Arm] 136/79 Blood Pressure Mean [Right Arm] 98 Blood Pressure Source [Right Arm] Automatic Cuff Blood Pressure Position [Right Arm] Sitting 02 Sat by Pulse Oximetry 98 Oxygen Delivery Method Room Air Lab Data Lab results reviewed: Yes I reviewed the patient's lab results. Medical Decision Narrative: 22-year-old male with history of obesity presents with multiple complaints including chest pain and left upper extremity symptoms. Differential diagnosis includes but not limited to ACS, PE, arrhythmia, scale chest pain, ulnar neuropathy. Vitals significant for mild hypertension, systolic 160. History is consistent with musculoskeletal chest pain and likely developing ulnar neuropathy secondary to overuse injury in the setting of work at the [employer]. An EKG was obtained and interpreted by me, significant for sinus rhythm, rate of 80, no concerning ST changes. There are Q waves noted in the inferior leads of unclear significance. Aspirin, chest x-ray, troponins were considered, but deemed unnecessary as this is not consistent with cardiac chest pain. Patient has an appointment to establish care with her PCP on Saturday of this week. They will be able to address his hypertension as well as further assess his likely developing ulnar neuropathy and overuse injury of the left upper extremity. Patient was discharged in stable condition. Return precautions given. Procedures Risk/Benefits of Procedure(s) Were Explained: Yes Critical Care Critical Care Time Critical Care Time: No
[2023-07-13 04:02] VITALS: BP 131/72; PULSE 71; RESP 18; TEMP 36.6; O2SAT 98
== END 2023-07-13 04:10 | disposition home or self-care (01) ==
PROVIDERS: Emergency Provider Emergency Medicine
DX: R07.9 Chest pain, unspecified (principal); M79.602 Pain in left arm; M25.532 Pain in left wrist; I10 Essential (primary) hypertension; R20.2 Paresthesia of skin; W22.8XXA Striking against or struck by other objects, initial encounter; Y99.0 Civilian activity done for income or pay
CPT/HCPCS: 93005; 99283

== ENCOUNTER 2023-07-13 16:55 | Emergency (ER) | payer BC, SELFPAY ==
[2023-07-13 17:05] VITALS: BP 141/75; PULSE 86; RESP 19; TEMP 36.8; O2SAT 99; BMI 40.6
--- NOTE | 2023-07-13 17:17 | EXP.UTC ---
Discharge Plan Disposition Patient Disposition: Home, Self-Care Condition: Good Referrals Follow up/Referrals: Provider,Referral, MD [Primary Care Provider] - See instructions Activity Restrictions/Add. Instructions Additional Instructions/Restrictions: follow up with pcp on as scheduled if symptoms worsen return Clinical Impressions Clinical Impression: Numbness and tingling of left hand Instructions Patient Instructions: DI for Numbness/Tingling Discharge [facility] [place] H[place] General Stated complaint: numbness in left hand left leg blurred vision Mode of Arrival: Ambulatory Source of Information: Patient Limitations: No Limitations Time Seen by Provider: 07/13/23 17:17 Description of Symptoms (Recalled from Triage Doc. by RN): PATIENT C/O TINGLING TO LEFT HAND AND LEFT LOWER LEG X 2 DAYS HEENT Symptoms (Recalled from RN notes): No Resp Symptoms (Recalled from RN notes): No Skin Symptoms (Recalled from RN notes): No MS Symptoms (Recalled from RN notes): No Functional Status (Recalled from RN notes): WNL History of Present Illness Provider Complaint: 22 yr old male presents for numbness to left pinking finger and left lower leg. pt states he was seen in ed this am but wanted to be rechecked. via ed note seen for chest pain this am but pt states that is gone. Related Data Allergies Allergy/AdvReac Type Severity Reaction Status Date / Time No Known Allergies Allergy Verified 09/03/18 13:26 Worker's Comp Is this a Worker's Comp case?: No [facility] Disclaimer: The information contained in this section may have been updated after the patient was seen, as this information can be updated by other users. 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 (Reviewed 07/13/23 @ 17:19 by Desi Mazariegos ([facility] [employer]) Smoking Status: Never smoker alcohol intake: never substance use type: denies use current occupational status: employed Travel in the last 8 weeks: None household members: family housing: house ROS Obtained: Yes All systems reviewed & no additional complaints except as documented Constitutional Constitutional: Reports system reviewed and no additional complaints, except as documented Eyes Eyes: Reports system reviewed and no additional complaints, except as documented ENT Ears, Nose, Mouth, and Throat: Reports system reviewed and no additional complaints, except as documented and Reports as per HPI Cardiovascular Cardiovascular: Reports system reviewed and no additional complaints, except as documented Respiratory Respiratory: Reports system reviewed and no additional complaints, except as documented Gastrointestinal Gastrointestingal: Reports system reviewed and no additional complaints, except as documented Musculoskeletal Musculoskeletal: Reports numbness and Reports tingling Neurologic Neurologic: Reports system reviewed and no additional complaints, except as documented, Reports as per HPI, Reports numbness and Reports tingling Endocrine Endocrine: Reports system reviewed and no additional complaints, except as documented Hematologic/Lymphatic Henatologic/Lymphatic: Reports system reviewed and no additional complaints, except as documented Physical Exam General General appearance: alert and in no apparent distress Head Head exam: atraumatic Eye Eye exam: Present normal appearance and PERRL ENT ENT exam: Present normal exam Neck Neck exam: Present normal inspection and full ROM Respiratory Respiratory exam: Present normal lung sounds bilaterally Cardiovascular Cardiovascular exam: Present regular rate and normal rhythm Extremities Exam Extremities exam: Present normal inspection, full ROM and normal capillary refill Back Exam Back exam: Present full ROM Neurological Exam Neurological exam: Present alert, oriented X3, CN II-XII intact and normal gait Skin Skin exam: Present warm, intact and normal color Medical Decision Making Medical Records Medical records reviewed: Yes I reviewed the patient's medical records. Sid Inquiry Pt receiving controlled substance: No Sid was queried for this patient: No Vital Signs: 07/13/23 17:05 Temperature 98.2 F Temperature Source Oral Pulse Rate [Right Brachial] 86 Respiratory Rate 19 Blood Pressure [Right Arm] 141/75 H Blood Pressure Mean [Right Arm] 97 Blood Pressure Source [Right Arm] Automatic Cuff Blood Pressure Position [Right Arm] Sitting 02 Sat by Pulse Oximetry 99 Oxygen Delivery Method Room Air Lab Data Lab results reviewed: Yes I reviewed the patient's lab results. Orders (Tests/Meds): ORDERS Category Date Time Status CBC Man Diff [Complete Blood Count Man Dif] Stat Lab 07/13/23 17:15 Ordered CMP [Comprehensive Metabolic Panel] Stat Lab 07/13/23 17:15 Ordered Free T4 (Free Thyroxine) Stat Lab 07/13/23 17:15 Ordered Hemoglobin A1C Stat Lab 07/13/23 17:15 Ordered Magnesium Stat Lab 07/13/23 17:15 Ordered TSH [Thyroid Stimulating Hormone] Stat Lab 07/13/23 17:15 Ordered Vitamin B12 Stat Lab 07/13/23 17:15 Ordered
[2023-07-13 17:36] VITALS: BP 141/75; PULSE 86; RESP 19; TEMP 36.8; O2SAT 99
[2023-07-13 17:41] LABS: MANUAL DIFFERENTIAL MANUAL DIFFERENTIAL (MANUAL DIFF)
[2023-07-13 17:45] LABS: Basophils # 0.1 K/mm3 (0-0.2); Basophils % 0.8 % (0.1-2.0); Eosinophils # 0.4 K/mm3 (0.0-0.4); Eosinophils % 5.8 % (0.1-12.0); Hematocrit 44.4 % (42.0-52.0); Hemoglobin 16.1 g/dL (14.1-18.0); Lymphocytes % 32.9 % (10-50); Mean Corpuscular HGB Conc 36.3 g/dL (31.8-35.4); Mean Corpuscular Hemoglobin 32.8 pg (27.0-31.2); Mean Corpuscular Volume 90.5 fl (80-94); Mean Platelet Volume 8.8 fl (7.4-10.4); Monocytes # 0.4 K/mm3 (0.1-1.0); Monocytes % 5.7 % (1.7-9.3); Neutrophils # 3.4 K/mm3 (1.8-7.8); Neutrophils % 54.9 % (37.0-80.0); Platelet Count 281 K/mm3 (142-424); Red Cell Distribution Width 13.5 % (11.5-17.5); White Blood Count 6.2 K/mm3 (4.8-10.8)
[2023-07-13 18:01] LABS: Alanine Aminotransferase 42 U/L (12-78); Albumin Level 4.8 g/dl (3.5-5.0); Albumin/Globulin Ratio 1.7 (1.1-1.8); Alkaline Phosphatase 47 U/L (38-126); Aspartate Amino Transferase 35 U/L (17-59); Bilirubin,Total 0.5 mg/dl (0.2-1.3); Blood Urea Nitrogen 14 mg/dl (9-20); Calcium 9.8 mg/dl (8.4-10.2); Carbon Dioxide 27 mmol/L (22.0-30.0); Chloride 107 mmol/L (98-107); Creatinine Clearance Estimated 274 mL/min (50-200); Estimated Glomerular Filt Rate 119 ml/min (>60); GFR (African American) 144 ML/MIN (>60); Globulin 2.8 g/dL (1.3-3.2); Glucose 102 mg/dl (74-100); Magnesium 2.2 mg/dl (1.6-2.3); Sodium 141 mmol/L (136-145); Total Protein,Serum 7.6 g/dl (6.3-8.2)
[2023-07-13 18:28] LABS: Eosinophils % 3 % (0-3); Lymphocytes % 32 % (10-50); Monocytes % 1 % (2-9); Neutrophils % 64 % (42-76); Platelet Estimate Normal; RBC Morphology Normal; Total Cells Counted 100
[2023-07-13 18:32] LABS: Thyroid Stimulating Hormone 1.95 uIU/mL (0.465-4.68)
[2023-07-13 18:52] LABS: Vitamin B12 659 pg/mL (239-931)
== END 2023-07-13 17:41 | disposition home or self-care (01) ==
PROVIDERS: Emergency Provider Nurse Practitioner Family
DX: R20.2 Paresthesia of skin (principal)
CPT/HCPCS: 80053; 82607; 83036; 83735; 84439; 84443; 85007; 85014; 85018; 85048; 85049; 99212; 99214; G0463

== ENCOUNTER 2023-07-18 15:20 | Emergency (ER) | payer BC, SELFPAY ==
[2023-07-18 15:33] VITALS: BP 141/86; PULSE 76; RESP 20; TEMP 36.8; O2SAT 99; BMI 40.6
--- NOTE | 2023-07-18 16:04 | XR_ITS ---
FINAL REPORT TECHNIQUE: Single view chest CLINICAL HISTORY: dyspnea COMPARISON: 09/06/2022 FINDINGS: A single view of the chest was obtained. The heart and mediastinum are within normal limits. The lungs are clear. There is no pneumothorax. Osseous structures are unremarkable. IMPRESSION: No acute cardiopulmonary process. Reviewed, Interpreted and Dictated by Jaime Arteaga III, MD Transcribed by Diane Higgins Authenticated and . [facility]
--- NOTE | 2023-07-18 16:08 | ECG_ITS ---
APPROVED REPORT Exam: Resting ECG HR:66 bpm ECG Measurements Heart Rate 66 AXES MO 151 P 38 QRSd 98 QRS 67 QT 380 T 51 QTc 394 Conclusion SINUS RHYTHM NORMAL ECG UNCONFIRMED REPORT Electronically signed by : Ron Harrington MD 07/20/2023 06:35:39
--- NOTE | 2023-07-18 16:14 | HMH.EDGENADL ---
Discharge Plan Disposition Patient Disposition: Home, Self-Care Referrals Follow up/Referrals: Darin Do MD [Primary Care Provider] - See instructions Activity Restrictions/Add. Instructions Additional Instructions/Restrictions: No evidence of an acute cardiopulmonary emergency. Please follow-up with primary care doctor as needed. Clinical Impressions Clinical Impression: Chest pain Instructions Patient Instructions: DI for Skin Abscess Discharge ED Provider: Pearl Muller General Adult HPI General Chief complaint: Skin/Abscess/Foreign Body Stated complaint: sore knot on LT breast Time Seen by Provider: 07/18/23 15:53 Mode of Arrival: Ambulatory Source of Information: Patient Limitations: No Limitations Description of Symptoms (Recalled from ER Triage Doc. by RN): pt states about 10d ago he noticed a knot on his L breast. Upon examining the pts L breast I am able to palpate a nodule under his L breast at 3 o'clock, that is tender to the touch. Pt states he saw his PCP yesterday and had a negative EKG. Pts PCP also scheduled him an US of his L breast on 07/23. Pt states he couldn't wait that long. History of Present Illness HPI narrative: Patient is a 22-year-old male presenting today with multiple complaints. Specifically states he is having some chest discomfort this been ongoing for the last week and a half. Was in the emergency department a few days ago had an A1c that was checked which was 5.0. Has no history of any coronary artery disease but states that he has a family history and is concerned about having a heart attack today. No exertional chest pain no diaphoresis or shortness of breath associated with this. Also states that about 2 weeks ago he noticed some dense tissue on the lateral aspect of his left areola and is concerned that this may be the cause of his pain. No redness warmth tenderness fevers or chills. Has an ultrasound scheduled of his left breast for July 23. Was specifically concerned about heart attack today. Does state he has had some increased thirst and urine output recently. Related Data Allergies Allergy/AdvReac Type Severity Reaction Status Date / Time No Known Allergies Allergy Verified 09/03/18 13:26 [facility] Disclaimer: The information contained in this section may have been updated after the patient was seen, as this information can be updated by other users. 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) Smoking Status: Never smoker alcohol intake: never substance use type: denies use current occupational status: employed Travel in the last 8 weeks: None household members: family housing: house ROS Obtained: Yes All systems reviewed & no additional complaints except as documented Physical Exam General General appearance: alert Respiratory Respiratory exam: Present normal lung sounds bilaterally; Absent respiratory distress Cardiovascular Cardiovascular exam: Present regular rate and normal rhythm Abdominal Exam Abdominal exam: Present soft; Absent distention or tenderness Neurological Exam Neurological exam: Present alert and oriented X3 Skin Skin exam: Present other (On the left lateral aspect of the breast there is some dense tissue that does appear slightly asymmetric in comparison with his right breast but no circumscribed mass erythema tenderness or fluctuance) Medical Decision Making Sid Inquiry Pt receiving controlled substance: No Vital Signs: 07/18/23 15:33 07/18/23 16:30 07/18/23 17:00 Temperature 98.3 F Temperature Source Oral Pulse Rate 67 64 Pulse Rate [Left] 76 Respiratory Rate 20 Blood Pressure 116/71 122/65 Blood Pressure [Right Arm] 141/86 H Blood Pressure Mean 74 Blood Pressure Mean [Right Arm] 104 Blood Pressure Source [Right Arm] Automatic Cuff Blood Pressure Position [Right Arm] Sitting 02 Sat by Pulse Oximetry 99 96 97 Oxygen Delivery Method Room Air Room Air Room Air 07/18/23 17:31 Temperature Temperature Source Pulse Rate 64 Pulse Rate [Left] Respiratory Rate Blood Pressure 102/68 L Blood Pressure [Right Arm] Blood Pressure Mean Blood Pressure Mean [Right Arm] Blood Pressure Source [Right Arm] Blood Pressure Position [Right Arm] 02 Sat by Pulse Oximetry 98 Oxygen Delivery Method Room Air Lab Data Lab results reviewed: Yes I reviewed the patient's lab results. Lab Results 07/18/23 16:09: WBC 6.0, RBC 4.91, Hgb 16.1, Hct 46.1, MCV 93.8, MCH 32.8 H, MCHC 34.9, RDW 13.6, Plt Count 253, MPV 8.8, Neut % (Auto) 51.8, Lymph % (Auto) 35.3, [place] % (Auto) 6.3, Eos % (Auto) 5.9, Baso % (Auto) 0.7, Neut # (Auto) 3.1, Lymph # (Auto) 2.1, [place] # (Auto) 0.4, Eos # (Auto) 0.4, Baso # (Auto) 0.0, Sodium 143, Potassium 4.0, Chloride 108 H, Carbon Dioxide 29, Anion Gap 10.0, BUN 12, Creatinine 0.80, Estimated Creat Clear 274, Estimated GFR 119, Est GFR ( Amer) 144, Glucose 99, Calcium 9.5, Total Bilirubin 0.5, AST 30, ALT 36, Alkaline Phosphatase 47, Troponin I < 0.01, Total Protein 7.1, Albumin 4.5, Globulin 2.6, Albumin/Globulin Ratio 1.7 07/18/23 16:09 07/18/23 16:09 Orders (Tests/Meds): ORDERS Category Date Time Status CXR --portable [XR chest portable] Stat Exams 07/18/23 16:04 Taken CBC w/Auto Diff [Complete Blood Count Auto Diff] Stat Lab 07/18/23 16:09 Completed CMP [Comprehensive Metabolic Panel] Stat Lab 07/18/23 16:09 Completed Trop I [Troponin I] Stat Lab 07/18/23 16:09 Completed Troponin I Q3H Lab 07/18/23 19:15 Ordered Troponin I Q3H Lab 07/18/23 22:15 Ordered ECG initial Besson Routine Y 07/18/23 16:08 Completed ECG Data Tracing #1: I reviewed this ECG and interpreted as documented below: (I personally interpreted EKG shows a ventricular rate of 66 normal axis no acute ischemic changes noted no conduction abnormalities nondiagnostic) Medical Decision Narrative: 22-year-old female presenting today with multiple complaints including left sided chest discomfort is been going for a week and a half. Will get a troponin and EKG. EKG was nonischemic and nonconcerning. Also a chest x-ray. No indication for serial troponins in this particular setting with ongoing symptoms for a week and a half. I do not appreciate any masses or evidence of infection lateral aspect of his breast. No indication for emergent imaging at this. He has outpatient follow-up scheduled already. Recently had an A1c of 5.0 but he does have symptoms concerning for possible diabetes will recheck metabolic workup and reassess. Assuming his workup is negative is very well-appearing with stable for outpatient management. Chest x-ray performed which I first interpreted shows no acute cardiopulmonary emergency. Labs unremarkable. Specifically troponin undetectably low no evidence of DKA or diabetes. Patient discharged with outpatient follow-up instructed. Critical Care Critical Care Time Critical Care Time: No
[2023-07-18 16:30] VITALS: BP 116/71; PULSE 67; O2SAT 96
[2023-07-18 16:38] LABS: Basophils % 0.7 % (0.1-2.0); Eosinophils # 0.4 K/mm3 (0.0-0.4); Eosinophils % 5.9 % (0.1-12.0); Hematocrit 46.1 % (42.0-52.0); Hemoglobin 16.1 g/dL (14.1-18.0); Lymphocytes # 2.1 K/mm3 (0.7-4.5); Lymphocytes % 35.3 % (10-50); Mean Corpuscular HGB Conc 34.9 g/dL (31.8-35.4); Mean Corpuscular Hemoglobin 32.8 pg (27.0-31.2); Mean Corpuscular Volume 93.8 fl (80-94); Mean Platelet Volume 8.8 fl (7.4-10.4); Monocytes # 0.4 K/mm3 (0.1-1.0); Monocytes % 6.3 % (1.7-9.3); Neutrophils # 3.1 K/mm3 (1.8-7.8); Neutrophils % 51.8 % (37.0-80.0); Platelet Count 253 K/mm3 (142-424); Red Blood Count 4.91 M/mm3 (4.60-6.20); Red Cell Distribution Width 13.6 % (11.5-17.5)
[2023-07-18 16:43] LABS: Alanine Aminotransferase 36 U/L (12-78); Albumin Level 4.5 g/dl (3.5-5.0); Albumin/Globulin Ratio 1.7 (1.1-1.8); Alkaline Phosphatase 47 U/L (38-126); Aspartate Amino Transferase 30 U/L (17-59); Bilirubin,Total 0.5 mg/dl (0.2-1.3); Blood Urea Nitrogen 12 mg/dl (9-20); Calcium 9.5 mg/dl (8.4-10.2); Carbon Dioxide 29 mmol/L (22.0-30.0); Chloride 108 mmol/L (98-107); Creatinine Clearance Estimated 274 mL/min (50-200); Estimated Glomerular Filt Rate 119 ml/min (>60); GFR (African American) 144 ML/MIN (>60); Globulin 2.6 g/dL (1.3-3.2); Glucose 99 mg/dl (74-100); Sodium 143 mmol/L (136-145); Total Protein,Serum 7.1 g/dl (6.3-8.2)
[2023-07-18 16:59] LABS: Troponin I < 0.01 ng/ml (0.00-0.034)
[2023-07-18 17:00] VITALS: BP 122/65; PULSE 64; O2SAT 97
[2023-07-18 17:31] VITALS: BP 102/68; PULSE 64; O2SAT 98
[2023-07-18 18:08] VITALS: BP 116/82; PULSE 68; RESP 16; TEMP 36.8
== END 2023-07-18 18:10 | disposition home or self-care (01) ==
PROVIDERS: Emergency Provider Student in an Organized Health Care Education/Training Program; PCP Family Medicine
DX: R07.9 Chest pain, unspecified (principal); R63.1 Polydipsia
CPT/HCPCS: 71045; 80053; 84484; 85025; 93005; 99285

== ENCOUNTER 2023-07-23 10:58 | Outpatient (CLI) | payer BC, SELFPAY ==
--- NOTE | 2023-07-23 11:06 | US_ITS ---
PROCEDURE INFORMATION: Exam: US Left Breast, Complete Exam date and time: 07/23/2023 11:04 AM Age: 23 years old Clinical indication: Palpable abnormality in the left breast TECHNIQUE: Imaging protocol: Complete ultrasound of all four quadrants of the left breast and the retroareolar regions, including ultrasound of the axilla when performed. COMPARISON: No relevant prior studies available. FINDINGS: Breast: Sonographic images of the left breast including the retroareolar region, all 4 quadrants and the axilla do not demonstrate any solid or cystic masses. This is with particular attention to the 3 o'clock axis 3 cm from the nipple where the patient reports a palpable abnormality. A prominent fat lobule is identified in this location. No architectural distortion or acoustical shadowing. No skin thickening or axillary adenopathy. IMPRESSION: Palpable abnormality in the left breast corresponds sonographically to normal fibroglandular and adipose tissue structures. There is no sonographic evidence of malignancy. Further evaluation of a palpable abnormality should be based on clinical grounds regardless of radiographic findings or lack thereof. ASSESSMENT: BI-RADS Category 1: Negative
== END 2023-07-23 23:59 ==
LOC: RAD 10:59
PROVIDERS: Visit Provider Nurse Practitioner
DX: N63.20 Unspecified lump in the left breast, unspecified quadrant (principal)
CPT/HCPCS: 76641

== ENCOUNTER 2023-07-24 16:12 | Outpatient (CLI) | payer BC, SELFPAY ==
--- NOTE | 2023-07-24 16:18 | MR_ITS ---
FINAL REPORT CLINICAL HISTORY: VISION CHANGES. PAIN ON TOP OF HEAD. STATES HE FEELS A KNOT. HEADACHE AND DIZZINESS. COMPARISON: None FINDINGS: Multiplanar MR imaging of the brain was performed without contrast. There is no evidence of intracranial hemorrhage or mass. The ventricular size is normal. There is no evidence of shift of the midline structures. No abnormal extra-axial fluid collection is identified. The posterior fossa and brainstem have an unremarkable appearance. No area of abnormal restricted diffusion is identified. Normal major vessel vascular flow voids are seen. There is total opacification of the right frontal sinus, which may be secondary to sinusitis or a mucocele. Follow-up with CT or MRI might be helpful if clinically indicated. There is mild mucosal thickening in the ethmoid air cells, and near-total opacification of the left maxillary sinus. IMPRESSION: Unremarkable brain with no acute intracranial abnormality. Total opacification of the right frontal sinus, likely sinusitis or a mucocele. Follow-up with CT or MRI might be helpful if clinically indicated. Reviewed, Interpreted and Dictated by Jaime Arteaga III, MD Transcribed by Flores Villalba Authenticated and [facility]
== END 2023-07-24 23:59 ==
LOC: RAD 16:14
PROVIDERS: PCP Family Medicine; Visit Provider Nurse Practitioner
DX: H53.8 Other visual disturbances (principal)
CPT/HCPCS: 70551

== ENCOUNTER 2023-09-08 17:00 | Emergency (ER) | payer BC, SELFPAY ==
[2023-09-08 17:03] VITALS: BP 136/84; PULSE 78; RESP 16; TEMP 36.6; O2SAT 98; BMI 40.6
--- NOTE | 2023-09-08 17:32 | HMH.EDGENADL ---
Discharge Plan Disposition Patient Disposition: Home, Self-Care Chief Complaint: Skin/Abscess/Foreign Body Referrals Follow up/Referrals: Edda Cheney APRN [Primary Care Provider] - See instructions Activity Restrictions/Add. Instructions Additional Instructions/Restrictions: At this time it was felt you are safe to be discharged home. If new or worsening symptoms please do not hesitate to return the emergency department. If symptoms persist please follow-up with your family doctor for possible neurology referral. Clinical Impressions Clinical Impression: Headache, Alteration in vision Instructions Patient Instructions: DI for Skin Abscess Discharge ED Provider: Jt Holman General Adult HPI General Chief complaint: Skin/Abscess/Foreign Body Stated complaint: Knot on top of head Time Seen by Provider: 09/08/23 17:15 Mode of Arrival: Ambulatory Source of Information: Patient Limitations: No Limitations Description of Symptoms (Recalled from ER Triage Doc. by RN): c/o a throbbing painful knot on the crown of his head that he noticed about a month ago, pt states that when he is eating and a few after he awakes in the am, he has blurry and static vision that comes and goes often. History of Present Illness HPI narrative: Patient is a 23-year-old male with no comorbidities who presents emergency department for evaluation of a knot on his head. He noticed it approximately a month ago over his crown, he states that it has gotten slightly bigger as the month has gone on. The knot is painful, worse when he lays down at night. He intermittently has vision changes which she describes as pixelated . He does not have any headache currently. He does not have corrective vision. No other acute complaints at this time. Related Data Allergies Allergy/AdvReac Type Severity Reaction Status Date / Time No Known Allergies Allergy Verified 09/03/18 13:26 [facility] Disclaimer: The information contained in this section may have been updated after the patient was seen, as this information can be updated by other users. 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 (Reviewed 07/13/23 @ 17:19 by Desi Mazariegos ([facility]), JOSE) Smoking Status: Never smoker alcohol intake: never substance use type: denies use current occupational status: employed Travel in the last 8 weeks: None household members: family housing: house ROS Obtained: Yes Systems reviewed as appropriate & no additional complaints except as documented Physical Exam General General appearance: alert and in no apparent distress Head Head exam: atraumatic and normocephalic Eye Eye exam: Present PERRL and EOMI ENT ENT exam: Present mucous membranes moist Neck Neck exam: Present normal inspection Chest Chest inspection: Present normal inspection and symmetric chest wall rise Respiratory Respiratory exam: Present normal lung sounds bilaterally; Absent respiratory distress Cardiovascular Cardiovascular exam: Present regular rate and normal rhythm Abdominal Exam Abdominal exam: Present soft; Absent tenderness Extremities Exam Extremities exam: Present normal inspection Neurological Exam Neurological exam: Present alert, oriented X3 and CN II-XII intact; Absent motor sensory deficit Psychiatric Psychiatric exam: Present normal affect Skin Skin exam: Present warm and dry Medical Decision Making Sid Inquiry Pt receiving controlled substance: No Vital Signs: 09/08/23 17:03 Temperature 97.9 F Temperature Source Oral Pulse Rate [Left Radial] 78 Respiratory Rate 16 Blood Pressure [Right Arm] 136/84 Blood Pressure Mean [Right Arm] 101 Blood Pressure Source [Right Arm] Automatic Cuff Blood Pressure Position [Right Arm] Sitting 02 Sat by Pulse Oximetry 98 Oxygen Delivery Method Room Air Lab Data Lab Results 09/08/23 17:59: WBC 6.4, RBC 4.96, Hgb 15.8, Hct 47.8, MCV 96.4 H, MCH 31.8 H, MCHC 33.0, RDW 14.0, Plt Count 282, MPV 8.8, Neut % (Auto) 55.0, Lymph % (Auto) 33.0, [place] % (Auto) 5.5, Eos % (Auto) 4.8, Baso % (Auto) 1.6, Neut # (Auto) 3.5, Lymph # (Auto) 2.1, [place] # (Auto) 0.4, Eos # (Auto) 0.3, Baso # (Auto) 0.1, Sodium 142, Potassium 3.7, Chloride 109 H, Carbon Dioxide 26, Anion Gap 10.7, BUN 11, Creatinine 0.80, Estimated Creat Clear 272, Estimated GFR 118, Est GFR ( Amer) 143, Glucose 114 H, Calcium 10.0, Total Bilirubin 0.8, AST 41, ALT 43, Alkaline Phosphatase 49, Total Protein 7.2, Albumin 4.5, Globulin 2.7, Albumin/Globulin Ratio 1.7 09/08/23 17:59 09/08/23 17:59 Orders (Tests/Meds): ED MEDICATIONS Generic Name Dose Route Start Last Admin Trade Name Freimelda PRN Reason Stop Dose Admin Sodium Chloride 10 ml 09/08/23 18:27 09/08/23 18:31 Sodium Chloride 0.9% 10ml Syr (Rad Only) IV 10/08/23 18:26 10 ml NEEDED PRN Administration Maintain IV Site Discontinued Medications Generic Name Dose Route Start Last Admin Trade Name Freq PRN Reason Stop Dose Admin Iopamidol 95 ml 09/08/23 18:27 09/08/23 18:31 Iopamidol-370 (76%);100ml Bottle IV 09/08/23 18:28 95 ml ONCE ONE Administration Sodium Chloride 40 ml 09/08/23 18:27 09/08/23 18:31 0.9 % Sodium Chloride 50 Ml Vial IV 09/08/23 18:28 40 ml ONCE ONE Administration ORDERS Category Date Time Status CT angio head with & w/o Stat Exams 09/08/23 17:34 Completed CBC w/Auto Diff [Complete Blood Count Auto Diff] Stat Lab 09/08/23 17:59 Completed CMP [Comprehensive Metabolic Panel] Stat Lab 09/08/23 17:59 Completed Medical Decision Narrative: In summary patient is a 23-year-old male with past medical history described above who presents emergency department for evaluation of a knot on his head, intermittent vision changes. Patient is hemodynamically stable nontoxic-appearing upon arrival, afebrile with a nonfocal neurologic exam. Differential diagnosis includes benign swelling, intracranial mass, among others. 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 Initial workup will be conducted with hematologic labs, CT head with and without IV contrast. Right eye 20/25 vision, left eye 20/20, both eyes 20/15 vision. Initial workup reviewed by me, hematologic labs are nonactionable. CT imaging shows no acute intracranial abnormality, stable findings from prior. Upon chart review after CT imaging it appears patient had recent MRI which was unremarkable with the exception of opacification of the right frontal sinus. Patient does not have any ongoing headache or worsening headache and given frontal sinus I have no current concern for venous sinus thrombosis. Upon repeat evaluation patient continued to be well-appearing and is appropriate for outpatient management at this time. He may benefit from evaluation by neurology on an outpatient basis Critical Care Critical Care Time Critical Care Time: No
--- NOTE | 2023-09-08 17:34 | CT_ITS ---
PROCEDURE INFORMATION: Exam: CT Head Without Contrast Exam date and time: 09/08/2023 6:14 PM Age: 23 years old Clinical indication: Visual disturbance; Additional info: Knot on crown, intermittent vision changes TECHNIQUE: Imaging protocol: Computed tomography of the head without contrast. 3D rendering (Not supervised by radiologist): MIP and/or 3D reconstructed images were created by the technologist. Radiation optimization: All CT scans at this facility use at least one of these dose optimization techniques: automated exposure control; mA and/or kV adjustment per patient size (includes targeted exams where dose is matched to clinical indication); or iterative reconstruction. COMPARISON: MR HEAD/BRAIN WO CON 07/24/2023 4:37 PM FINDINGS: Brain: Normal. No hemorrhage. Unremarkable white matter. No mass effect. Cerebral ventricles: No ventriculomegaly. Paranasal sinuses: See Bones/joints finding. Mastoid air cells: Visualized mastoid air cells are well aerated. Bones/joints: Mucous retention cyst left maxillary sinus and mild mucosal thickening of some of the ethmoids and opacified right frontal sinus redemonstrated. No fluid levels. Soft tissues: Unremarkable. IMPRESSION: Stable noncontrast CT brain. No acute intracranial abnormality.
[2023-09-08 18:08] LABS: Basophils # 0.1 K/mm3 (0-0.2); Basophils % 1.6 % (0.1-2.0); Eosinophils # 0.3 K/mm3 (0.0-0.4); Eosinophils % 4.8 % (0.1-12.0); Hematocrit 47.8 % (42.0-52.0); Hemoglobin 15.8 g/dL (14.1-18.0); Lymphocytes # 2.1 K/mm3 (0.7-4.5); Mean Corpuscular Hemoglobin 31.8 pg (27.0-31.2); Mean Corpuscular Volume 96.4 fl (80-94); Mean Platelet Volume 8.8 fl (7.4-10.4); Monocytes # 0.4 K/mm3 (0.1-1.0); Monocytes % 5.5 % (1.7-9.3); Neutrophils # 3.5 K/mm3 (1.8-7.8); Platelet Count 282 K/mm3 (142-424); Red Blood Count 4.96 M/mm3 (4.60-6.20); White Blood Count 6.4 K/mm3 (4.8-10.8)
[2023-09-08 18:12] LABS: Chloride 109 mmol/L (98-107); Potassium 3.7 mmoL/L (3.5-5.1); Sodium 142 mmol/L (136-145)
[2023-09-08 18:15] LABS: Alanine Aminotransferase 43 U/L (12-78); Albumin Level 4.5 g/dl (3.5-5.0); Albumin/Globulin Ratio 1.7 (1.1-1.8); Alkaline Phosphatase 49 U/L (38-126); Anion Gap 10.7 mEq/L (5-15); Aspartate Amino Transferase 41 U/L (17-59); Bilirubin,Total 0.8 mg/dl (0.2-1.3); Blood Urea Nitrogen 11 mg/dl (9-20); Carbon Dioxide 26 mmol/L (22.0-30.0); Creatinine Clearance Estimated 272 mL/min (50-200); Estimated Glomerular Filt Rate 118 ml/min (>60); GFR (African American) 143 ML/MIN (>60); Globulin 2.7 g/dL (1.3-3.2); Total Protein,Serum 7.2 g/dl (6.3-8.2)
[2023-09-08 18:16] LABS: Glucose 114 mg/dl (74-100)
[2023-09-08] MEDS: IOPAMIDOL-370 (76%);100ML BOTTLE 95 ML IV (18:31)
[2023-09-08] MEDS: 0.9 % SODIUM CHLORIDE 50 ML VIAL 40 ML IV (18:31)
[2023-09-08] MEDS: SODIUM CHLORIDE 0.9% 10ML SYR (RAD ONLY) 10 ML IV (18:31)
--- NOTE | 2023-09-08 18:50 | PC.NURSE ---
rounded on pt stated no needs at this time call light at bs
[2023-09-08 20:12] VITALS: BP 135/88; PULSE 80; RESP 16; TEMP 36.9; O2SAT 98
== END 2023-09-08 20:14 | disposition home or self-care (01) ==
PROVIDERS: Emergency Provider Emergency Medicine; PCP Nurse Practitioner
DX: R51.9 Headache, unspecified (principal); H53.8 Other visual disturbances
CPT/HCPCS: 70496; 80053; 85025; 99284; Q9967

== ENCOUNTER 2023-09-23 10:39 | Outpatient (CLI) | payer BC, SELFPAY ==
[2023-09-23 12:51] LABS: Vitamin B12 556 pg/mL (239-931)
== END 2023-09-23 23:59 ==
LOC: LAB 10:40
PROVIDERS: PCP Nurse Practitioner; Visit Provider Specialist
DX: D75.89 Other specified diseases of blood and blood-forming organs (principal)
CPT/HCPCS: 36415; 82607; 82746

== ENCOUNTER 2023-11-20 14:12 | Outpatient (POV) | payer BC, SELFPAY | END 2023-11-20 23:59 | disposition home or self-care (01) | LOC: SC 14:13 | PROVIDERS: Visit Provider Specialist/Technologist | DX: Z00.00 Encounter for general adult medical examination without abnormal findings (principal) ==

== ENCOUNTER 2023-11-22 08:50 | Outpatient (CLI) | payer BC, SELFPAY ==
--- NOTE | 2023-11-22 09:00 | CT_ITS ---
FINAL REPORT TECHNIQUE: Thin section axial CT images of the facial bones and sinuses were obtained without contrast. Coronal reformatted images were also obtained.This study was performed with techniques to keep radiation doses as low as reasonably achievable, (ALARA). Individualized dose reduction techniques using automated exposure control or adjustment of mA and/or kV according to the patient''''s size were employed. CLINICAL HISTORY: sinus issues COMPARISON: 09/08/2023 FINDINGS: There is total opacification of the right frontal sinus which is stable. There is a retention cyst or polyp in the left maxillary sinus which is also stable. There is mild mucosal thickening in several ethmoid air cells in the right maxillary sinus. The right ostiomeatal unit is patent. There is narrowing of the left maxillary sinus, ostium, and infundibulum. This is felt due to a combination of mucosal thickening and congenital narrowing. There is mild rightward nasal septal deviation. No fracture or acute bony abnormality is identified. IMPRESSION: Narrowing of the left maxillary sinus, ostium, and infundibulum. Mild mucosal thickening right maxillary sinus. Mild rightward nasal septal deviation. Stable total opacification right frontal sinus. Stable retention cyst or polyp left maxillary sinus. Reviewed, Interpreted and Dictated by Jaime Arteaga III, MD Transcribed by Geneva Sotomayor Authenticated and [facility]
== END 2023-11-22 23:59 | disposition home or self-care (01) ==
LOC: RAD 08:52
PROVIDERS: PCP Nurse Practitioner; Visit Provider Nurse Practitioner
DX: J32.9 Chronic sinusitis, unspecified (principal)
CPT/HCPCS: 70486

== ENCOUNTER 2024-01-14 02:40 | Emergency (ER) | payer BC, SELFPAY ==
[2024-01-14 02:42] VITALS: BP 131/88; PULSE 93; RESP 20; TEMP 37.1; O2SAT 96; BMI 40.6
--- NOTE | 2024-01-14 03:23 | CT_ITS ---
PROCEDURE INFORMATION: Exam: CT Head Without Contrast Exam date and time: 01/14/2024 3:41 AM Age: 23 years old Clinical indication: Pain; Headache; Additional info: [place] TECHNIQUE: Imaging protocol: Computed tomography of the head without contrast. Radiation optimization: All CT scans at this facility use at least one of these dose optimization techniques: automated exposure control; mA and/or kV adjustment per patient size (includes targeted exams where dose is matched to clinical indication); or iterative reconstruction. COMPARISON: CT ANGIO HEAD WITH W/O 09/08/2023 6:14 PM FINDINGS: Brain: Normal. No hemorrhage. Unremarkable white matter. No mass effect. Cerebral ventricles: No ventriculomegaly. Paranasal sinuses: Polypoid disease is noted in the right frontal sinus and left maxillary antra. Mastoid air cells: Visualized mastoid air cells are well aerated. Bones: Unremarkable. No acute fracture. Soft tissues: Unremarkable. IMPRESSION: No acute intracranial process. Paranasal sinus disease as described.
--- NOTE | 2024-01-14 03:25 | ED_ITS ---
Discharge Plan Disposition Patient Disposition: Home, Self-Care Condition: Good Prescriptions Prescriptions: New hydroxyzine HCl 25 mg tablet 25 mg PO Q6H PRN (Reason: nausea and vomiting) Qty: 30 0RF No Action azelastine 137 mcg (0.1 %) aerosol,spray 1 spray intranasal BID Qty: 30 2RF Rx Instructions: administer into each nostril methylprednisolone 4 mg tablets,dose pack 4 mg PO amoxicillin-pot clavulanate 875-125 mg tablet 1 tab PO BID 10 Days Qty: 20 0RF cholecalciferol (vitamin D3) 1,250 mcg (50,000 unit) capsule 1,250 mcg PO .COMPLEX Rx Instructions: 1,250 mcg orally TWICE WEEK; Referrals Follow up/Referrals: Edda Cheney APRN [Primary Care Provider] - See instructions Activity Restrictions/Add. Instructions Additional Instructions/Restrictions: You were evaluated in the ER and are appropriate for discharge at this time. Take the prescribed hydroxyzine if needed for anxiety, do not drive after taking it. Make an appointment with your primary care physician for reevaluation in a few days, also call neurology for a follow-up appointment. Return to the ER with new, worsening, or otherwise concerning symptoms. Clinical Impressions Clinical Impression: Headache, Anxiety Print Language Print Language: Cameroonian Discharge ED Provider: Wendy Fregoso Adult HPI General Chief complaint: Headache Stated complaint: severe west, jittery Time Seen by Provider: 01/14/24 03:06 Mode of Arrival: Ambulatory Source of Information: Patient Limitations: No Limitations Description of Symptoms (Recalled from ER Triage Doc. by RN): Patient presents to ED with WEST and feeling 'off'. Patient states he has been getting these WEST's for jacquelyn. 1 month. Patient also reports vision changes, and pain radiates to his neck when he has these WEST's. WEST's are mostly at night per patient. History of Present Illness HPI narrative: 23-year-old male presents to the ER for complaints of headache and feeling off . He also describes a sensation of jitteriness. He reported to me the symptoms have been going on for approximately 3 months, however my review of previous records including a neurology note from September demonstrates he had complained of the symptoms for 2 months prior to that. Patient has been having the symptoms for at least 5 months. He reports vision changes that he describes as mild blurriness, though he reports he saw an eye doctor last week and everything was normal and reassuring. Patient states he has pain in the top of his head that radiates down his neck. Patient has had a reassuring MRI, reassuring CTA. Patient is concerned that something more could be wrong including possibly cancer. Patient reports feeling tremulous and believes that he may be experiencing anxiety. He states he fixates on his symptoms and is extremely anxious that something has been missed. He is concerned that anxiety could be contributing to his symptoms. Patient does report drinking 1 energy drink per day. MRI brain from September 2023 for headache was unremarkable though there was findings of sinusitis/mucocele. CT angiography in August 2023 did not demonstrate any vascular abnormality. Sinus CT in November 2023 demonstrated opacification of the right frontal sinus, possible retention cyst or polyp in the left maxillary sinus, mucosal thickening of the right maxillary sinus, nasal septal deviation. Patient is not complaining of congestion, facial pain or pressure, or drainage. Related Data Home Medications ?Medication ?Instructions ?Recorded ?Confirmed cholecalciferol (vitamin D3) 1,250 1,250 mcg PO .COMPLEX 09/23/23 12/18/23 mcg (50,000 unit) capsule methylprednisolone 4 mg tablets in 4 mg PO 12/18/23 12/18/23 a dose pack Previous Rx's ?Medication ?Instructions ?Recorded azelastine 137 mcg (0.1 %) nasal 1 spray intranasal BID #30 mL 11/20/23 spray amoxicillin 875 mg-potassium 1 tab PO BID 10 days #20 tabs 12/18/23 clavulanate 125 mg tablet hydroxyzine HCl 25 mg tablet 25 mg PO Q6H PRN nausea and 01/14/24 vomiting #30 tabs Allergies Allergy/AdvReac Type Severity Reaction Status Date / Time No Known Allergies Allergy Verified 12/18/23 14:22 [facility] Disclaimer: The information contained in this section may have been updated after the patient was seen, as this information can be updated by other users. 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 (Updated 01/14/24 @ 06:36 by Wendy Fregoso MD) Frontal sinusitis Maxillary sinusitis Deviated septum Chronic dysfunction of both eustachian tubes Sinusitis Tinnitus History of recurrent ear infection Elevated lipase Headache Family History Other Coronary artery disease Diabetes Heart attack 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 Smoking Status: Current every day smoker alcohol intake: never substance use type: denies use current occupational status: employed Travel in the last 8 weeks: None household members: other housing: house marital status: single ROS Obtained: Yes All systems reviewed & no additional complaints except as documented Constitutional Constitutional: Denies chills, Denies fever(s), Reports headache(s) and Denies weakness Eyes Eyes: Reports change in vision ENT Ears, Nose, Mouth, and Throat: Denies dizziness, Reports headache(s), Denies nasal congestion and Denies sore throat Cardiovascular Cardiovascular: Denies chest pain, Denies dyspnea and Denies leg edema Respiratory Respiratory: Denies cough and Denies dyspnea Gastrointestinal Gastrointestingal: Reports abdominal pain; Denies constipation, diarrhea, nausea or vomiting Genitourinary Male Genitourinary: Denies difficulty urinating Musculoskeletal Musculoskeletal: Denies arthralgias, Denies myalgias, Denies numbness and Reports tingling (Patient reports a tingling/tremor sensation, describing it as jitteriness.) Integumentary/Breasts Skin/Breast: Denies change in pigmentation Neurologic Neurologic: Denies dizziness, Reports headache(s), Denies numbness, Reports tingling (Patient reports a tingling/tremor sensation, describing it as jitteriness.) and Denies weakness Physical Exam General General appearance: alert and in no apparent distress Head Head exam: atraumatic and normocephalic Eye Eye exam: Present PERRL and EOMI; Absent nystagmus ENT ENT exam: Present mucous membranes moist Neck Neck exam: Present normal inspection and full ROM Chest Chest inspection: Present symmetric chest wall rise Respiratory Respiratory exam: Present normal lung sounds bilaterally and wheezes; Absent respiratory distress or stridor Cardiovascular Cardiovascular exam: Present regular rate and normal rhythm Abdominal Exam Abdominal exam: Present soft; Absent distention or tenderness Extremities Exam Extremities exam: Present full ROM Neurological Exam Neurological exam: Present alert, oriented X3, CN II-XII intact, normal gait and other (No cerebellar symptoms); Absent motor sensory deficit Psychiatric Psychiatric exam: Present normal affect and normal mood Skin Skin exam: Present warm and dry Medical Decision Making Medical Records Medical records reviewed: Yes I reviewed the patient's medical records. MR Comment: See HPI for details Sid Inquiry Pt receiving controlled substance: No Vital Signs: 01/14/24 02:42 01/14/24 06:41 Temperature 98.7 F 98.6 F Temperature Source Oral Oral Pulse Rate 85 Pulse Rate [Right Radial] 93 H Respiratory Rate 20 20 Blood Pressure 125/72 Blood Pressure [Right Arm] 131/88 Blood Pressure Mean [Right Arm] 102 Blood Pressure Source Automatic Cuff Blood Pressure Source [Right Arm] Automatic Cuff Blood Pressure Position Supine Blood Pressure Position [Right Arm] Sitting 02 Sat by Pulse Oximetry 96 Oxygen Delivery Method Room Air Room Air Lab Data Lab Results 01/14/24 03:34: WBC 7.1, RBC 4.50 L, Hgb 14.5, Hct 42.9, MCV 95.2 H, MCH 32.3 H, MCHC 33.9, RDW 14.3, Plt Count 283, MPV 8.5, Neut % (Auto) 48.5, Lymph % (Auto) 41.4, Jasper % (Auto) 5.4, Eos % (Auto) 3.5, Baso % (Auto) 1.2, Neut # (Auto) 3.4, Lymph # (Auto) 2.9, Jasper # (Auto) 0.4, Eos # (Auto) 0.3, Baso # (Auto) 0.1, PT 11.1, INR 0.99, Sodium 142, Potassium 3.3 L, Chloride 107, Carbon Dioxide 26, Anion Gap 12.3, BUN 12, Creatinine 0.80, Estimated Creat Clear 272, Estimated GFR 118, Est GFR ( Amer) 143, Glucose 92, Calcium 9.5, Total Bilirubin 0.4, AST 33, ALT 49, Alkaline Phosphatase 44, Total Protein 7.3, Albumin 4.4, Globulin 2.9, Albumin/Globulin Ratio 1.5 01/14/24 03:34 01/14/24 03:34 Orders (Tests/Meds): ED MEDICATIONS Discontinued Medications Generic Name Dose Route Start Last Admin Trade Name Freq PRN Reason Stop Dose Admin Hydroxyzine Pamoate 50 mg 01/14/24 03:22 01/14/24 03:28 Hydroxyzine Pamoate 25mg Capsule PO 01/14/24 03:23 50 mg ONCE ONE Administration Lactated Ringer's 500 mls @ 999 mls/hr 01/14/24 03:23 01/14/24 03:28 Lactated Ringer's 500ml IV 01/14/24 03:53 999 mls/hr .Q31M ONE Administration ORDERS Category Date Time Status CT head/brain wo con Stat Cat Scan 01/14/24 03:23 Completed CBC w/Auto Diff [Complete Blood Count Auto Diff] Stat Lab 01/14/24 03:34 Completed CMP [Comprehensive Metabolic Panel] Stat Lab 01/14/24 03:34 Completed PT INR [Prothrombin Time INR] Stat Lab 01/14/24 03:34 Completed Medical Decision Narrative: In summary, this 23-year-old male presents to the emergency department today with concerns of headache, jitteriness. On initial evaluation patient is hemodynamically stable, afebrile, GCS 15, no neurologic deficits. Differential diagnosis includes but is not limited to anxiety, headache, migraine, electrolyte abnormality, dehydration, considered space-occupying lesion or other intracranial abnormality though I have low suspicion for these given his history of previous imaging workup. Based on these concerns, I ordered CT head, basic labs. Patient received Vistaril for treatment. Labs personally reviewed demonstrate no leukocytosis or anemia, platelets normal, PT/INR normal, CMP nonactionable. CT head personally interpreted does not demonstrate any acute intracranial abnormality, see radiology read for final interpretation. Given significantly reassuring previous workups and evaluations by specialist, I do not believe patient requires further workup in the ER at this time. He states he does feel better after receiving the Vistaril so this was prescribed to him. I instructed him to not take this prior to driving or operating machinery. Patient was given instructions on symptomatic management, follow up instructions, and return precautions for the emergency department. Patient indicated understanding and was discharged in stable condition. Critical Care Critical Care Time Critical Care Time: No
[2024-01-14] MEDS: hydrOXYzine pamoate 25MG CAPSULE 50 MG PO (03:28)
[2024-01-14] MEDS: RINGERS SOLUTION,LACTATED 500 ML 999 ML IV (03:28)
[2024-01-14 03:43] LABS: Basophils # 0.1 K/mm3 (0-0.2); Basophils % 1.2 % (0.1-2.0); Eosinophils # 0.3 K/mm3 (0.0-0.4); Eosinophils % 3.5 % (0.1-12.0); Hematocrit 42.9 % (42.0-52.0); Hemoglobin 14.5 g/dL (14.1-18.0); Lymphocytes # 2.9 K/mm3 (0.7-4.5); Lymphocytes % 41.4 % (10-50); Mean Corpuscular HGB Conc 33.9 g/dL (31.8-35.4); Mean Corpuscular Hemoglobin 32.3 pg (27.0-31.2); Mean Corpuscular Volume 95.2 fl (80-94); Mean Platelet Volume 8.5 fl (7.4-10.4); Monocytes # 0.4 K/mm3 (0.1-1.0); Monocytes % 5.4 % (1.7-9.3); Neutrophils # 3.4 K/mm3 (1.8-7.8); Neutrophils % 48.5 % (37.0-80.0); Platelet Count 283 K/mm3 (142-424); Red Cell Distribution Width 14.3 % (11.5-17.5); White Blood Count 7.1 K/mm3 (4.8-10.8)
[2024-01-14 03:52] LABS: Alanine Aminotransferase 49 U/L (12-78); Albumin Level 4.4 g/dl (3.5-5.0); Albumin/Globulin Ratio 1.5 (1.1-1.8); Alkaline Phosphatase 44 U/L (38-126); Anion Gap 12.3 mEq/L (5-15); Aspartate Amino Transferase 33 U/L (17-59); Bilirubin,Total 0.4 mg/dl (0.2-1.3); Blood Urea Nitrogen 12 mg/dl (9-20); Calcium 9.5 mg/dl (8.4-10.2); Carbon Dioxide 26 mmol/L (22.0-30.0); Chloride 107 mmol/L (98-107); Creatinine Clearance Estimated 272 mL/min (50-200); Estimated Glomerular Filt Rate 118 ml/min (>60); GFR (African American) 143 ML/MIN (>60); Globulin 2.9 g/dL (1.3-3.2); Glucose 92 mg/dl (74-100); INR 0.99 (0.9-1.1); Potassium 3.3 mmoL/L (3.5-5.1); Prothrombin Time 11.1 seconds (10.1-12.5); Sodium 142 mmol/L (136-145); Total Protein,Serum 7.3 g/dl (6.3-8.2)
[2024-01-14 06:41] VITALS: BP 125/72; PULSE 85; RESP 20; TEMP 37; O2SAT 97
== END 2024-01-14 06:42 | disposition home or self-care (01) ==
PROVIDERS: Emergency Provider Emergency Medicine; PCP Nurse Practitioner
DX: R51.9 Headache, unspecified (principal); F41.9 Anxiety disorder, unspecified; F17.210 Nicotine dependence, cigarettes, uncomplicated
CPT/HCPCS: 70450; 80053; 85025; 85610; 99284; J7120

== ENCOUNTER 2024-06-13 14:45 | Emergency (ER) | payer BC, SELFPAY ==
[2024-06-13 15:05] VITALS: BP 150/82; PULSE 85; RESP 16; TEMP 36.6; O2SAT 98; BMI 40.0
--- NOTE | 2024-06-13 15:08 | ED_ITS ---
<Statement entered by Pearl Muller MD - 06/16/24 21:34> I was consulted by the FABY, and we discussed the complexity of the problems being addressed. I approved the treatment and management plan for this patient's care in the emergency department, thus performing a substantive portion of the medical decision making. Pearl Muller MD, HANH, FACEP Discharge Plan Disposition Patient Disposition: Home, Self-Care Condition: Good Chief Complaint: Upper Respiratory Infection Prescriptions Prescriptions: No Action azelastine 137 mcg (0.1 %) aerosol,spray 1 spray intranasal BID Qty: 30 2RF Rx Instructions: administer into each nostril methylprednisolone 4 mg tablets,dose pack 4 mg PO amoxicillin-pot clavulanate 875-125 mg tablet 1 tab PO BID 10 Days Qty: 20 0RF cholecalciferol (vitamin D3) 1,250 mcg (50,000 unit) capsule 1,250 mcg PO .COMPLEX Rx Instructions: 1,250 mcg orally TWICE WEEK; hydroxyzine HCl 25 mg tablet 25 mg PO Q6H PRN (Reason: nausea and vomiting) Qty: 30 0RF Referrals Follow up/Referrals: Liz Cheney APRN [Primary Care Provider] - See instructions Activity Restrictions/Add. Instructions Additional Instructions/Restrictions: No sign of a bacterial infection. Likely viral. Viruses can take 7-14 days to run their course. Nasal saline and bulb syringe or nose Sepideh to remove nasal drainage to help with nasal congestion. Hard to eat, drink, sleep with nasal congestion so important to keep this cleaned out. Monitor temp. Tylenol or Motrin as needed for pain or fever Encourage fluids, water, Gatorade, Powerade, Pedialyte if infant/toddler/child Warm salt water gargles Warm fluids Sore throat lozenges Sleep elevated Humidifier/vaporizer Follow-up immediately for new or worsening symptoms or no noticeable improvement over the next 48-72 hours. Clinical Impressions Clinical Impression: Influenza A Instructions Patient Instructions: DI for Influenza -- Adult Print Language Print Language: Romanian Discharge ED Provider: David Espinosa Adult HPI General Chief complaint: Upper Respiratory Infection Stated complaint: congestion, soa, burning in chest Time Seen by Provider: 06/13/24 15:04 Mode of Arrival: Ambulatory Source of Information: Patient Limitations: No Limitations History of Present Illness HPI narrative: 23-year-old male presents for complaints of nasal congestion, chest congestion, cough and burning in chest with coughing since Saturday Related Data Home Medications ?Medication ?Instructions ?Recorded ?Confirmed cholecalciferol (vitamin D3) 1,250 1,250 mcg PO .COMPLEX 09/23/23 12/18/23 mcg (50,000 unit) capsule methylprednisolone 4 mg tablets in 4 mg PO 12/18/23 12/18/23 a dose pack Previous Rx's ?Medication ?Instructions ?Recorded azelastine 137 mcg (0.1 %) nasal 1 spray intranasal BID #30 mL 11/20/23 spray amoxicillin 875 mg-potassium 1 tab PO BID 10 days #20 tabs 12/18/23 clavulanate 125 mg tablet hydroxyzine HCl 25 mg tablet 25 mg PO Q6H PRN nausea and 01/14/24 vomiting #30 tabs Allergies Allergy/AdvReac Type Severity Reaction Status Date / Time No Known Allergies Allergy Verified 06/13/24 15:09 [facility] Disclaimer: The information contained in this section may have been updated after the patient was seen, as this information can be updated by other users. 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) Smoking Status: Never smoker alcohol intake: never substance use type: denies use current occupational status: employed Travel in the last 8 weeks: None household members: other housing: house marital status: single Have you lived/traveled outside [place] in past 30 days?: No Contact w/someone who lives/traveled outside [place] past 30 days?: No Exposure to someone with infectious disease in past 14 days?: No Do you have a fever (greater than 100.4 F or 38 C)?: No Have you tested positive for COVID-19: No Exposed to someone with COVID-19 in past 14 days?: No Do you have a sore throat?: No Do you have a cough?: No Do you have any weakness?: No Do you have any diarrhea?: No Are you experiencing any unusual bleeding?: No Do you have any muscle aches/pain?: No Do you have any abdominal pain?: No Are you experiencing loss of taste or smell?: No Other 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 Have you received the Flu Vaccine for this season: No Have you received the Pneumonia Vaccine: No ROS Obtained: Yes Systems reviewed as appropriate & no additional complaints except as documented Physical Exam General General appearance: alert and in no apparent distress Eye Eye exam: Present normal appearance ENT ENT exam: Present normal exam, normal oropharynx, mucous membranes moist and TM's normal bilaterally Respiratory Respiratory exam: Present normal lung sounds bilaterally Cardiovascular Cardiovascular exam: Present regular rate and normal rhythm Neurological Exam Neurological exam: Present alert and oriented X3 Skin Skin exam: Present warm Medical Decision Making Medical Records Medical records reviewed: Yes I reviewed the patient's medical records. Screening: Per USPSTF and CDC recommendations, given the prevalence of disease in our region, it is our hospital?s policy to screen for HIV and viral Hepatitis for all patients aged 18 and over and those with ongoing risk factors. Sid Inquiry Pt receiving controlled substance: No Vital Signs: 06/13/24 15:05 06/13/24 15:30 Temperature 98 F Temperature Source Oral Pulse Rate 82 Pulse Rate [Left] 85 Respiratory Rate 16 Blood Pressure 114/68 Blood Pressure [Right Arm] 150/82 H Blood Pressure Mean [Right Arm] 104 Blood Pressure Source [Right Arm] Automatic Cuff Blood Pressure Position [Right Arm] Sitting 02 Sat by Pulse Oximetry 98 95 Oxygen Delivery Method Room Air Lab Data Lab results reviewed: Yes I reviewed the patient's lab results. Lab Results 06/13/24 15:04: SARS-CoV-2 (PCR) Not detected, Influenza A Untype (PCR) Detected A, Influenza Type B (PCR) Not detected Orders (Tests/Meds): ORDERS Category Date Time Status Chest XR 2 view (NOT portable) [XR chest 2V] Stat Exams 06/13/24 15:36 Taken Rapid PCR Covid and Flu A/B Stat Lab 06/13/24 15:04 Completed Medical Decision Narrative: In summary patient is a 23 who presents to the emergency department for evaluation of cough, congestion, and burning in the chest with coughing since Saturday. Patient is hemodynamically stable upon arrival, afebrile. Unremarkable physical exam. Differential diagnosis includes upper respiratory infection, flu, COVID, pneumonia. Initial workup will be conducted with chest x-ray, flu swab, covid swab. Initial inventions include chest x-ray, COVID and flu swab. Initial workup reviewed by me chest x-ray COVID and flu swab. Upon r epeat evaluation patient resting in bed comfortably vital signs stable. Given this patient is appropriate for discharge at this time will discharge home with symptom management, I informally interpreted patient's chest x-ray normal Critical Care Critical Care Time Critical Care Time: No
[2024-06-13 15:19] LABS: Coronavirus 19, PCR Not Detected (NotDetected); Influenza B, PCR Not Detected (NotDetected)
[2024-06-13 15:30] VITALS: BP 114/68; PULSE 82; O2SAT 95
--- NOTE | 2024-06-13 15:36 | XR_ITS ---
PROCEDURE INFORMATION: Exam: XR Chest Exam date and time: 06/13/2024 3:33 PM Age: 23 years old Clinical indication: Shortness of breath; Additional info: shine WHITNEY TECHNIQUE: Imaging protocol: Radiologic exam of the chest. Views: 2 views. Total images: 2 COMPARISON: CR XR CHEST PORTABLE 07/18/2023 4:09 PM FINDINGS: Lungs: Unremarkable. No consolidation. Pleural spaces: Unremarkable. No pleural effusion. No pneumothorax. Heart/Mediastinum: Unremarkable. No cardiomegaly. Bones/joints: Unremarkable. IMPRESSION: No acute findings.
[2024-06-13 15:47] LABS: Influenza A, PCR Detected (NotDetected)
[2024-06-13 16:00] VITALS: BP 119/71; PULSE 84; O2SAT 97
[2024-06-13 16:26] VITALS: BP 119/71; PULSE 85; RESP 16; TEMP 36.6; O2SAT 95
== END 2024-06-13 16:27 | disposition home or self-care (01) ==
PROVIDERS: Nurse Practitioner Family; Emergency Provider Student in an Organized Health Care Education/Training Program; PCP Nurse Practitioner
DX: J10.1 Influenza due to other identified influenza virus with other respiratory manifestations (principal); R05.9 Cough, unspecified; R09.81 Nasal congestion; R09.89 Other specified symptoms and signs involving the circulatory and respiratory systems; R07.89 Other chest pain; R06.02 Shortness of breath
CPT/HCPCS: 71046; 87636; 99283

== ENCOUNTER 2024-08-21 13:51 | Emergency (ER) | payer BC, SELFPAY ==
[2024-08-21 13:55] VITALS: BP 150/82; PULSE 76; RESP 18; TEMP 36.6; O2SAT 98; BMI 41.1
[2024-08-21 14:05] LABS: Coronavirus 19, PCR Not Detected (NotDetected); Influenza A, PCR Not Detected (NotDetected); Influenza B, PCR Not Detected (NotDetected)
--- NOTE | 2024-08-21 14:08 | ED_ITS ---
Discharge Plan Disposition Patient Disposition: Home, Self-Care Prescriptions Prescriptions: No Action azelastine 137 mcg (0.1 %) aerosol,spray 1 spray intranasal BID Qty: 30 2RF Rx Instructions: administer into each nostril cholecalciferol (vitamin D3) 1,250 mcg (50,000 unit) capsule 1,250 mcg PO .COMPLEX Rx Instructions: 1,250 mcg orally TWICE WEEK; hydroxyzine HCl 25 mg tablet 25 mg PO Q6H PRN (Reason: nausea and vomiting) Qty: 30 0RF Referrals Follow up/Referrals: Gregory Garcia II, MD [Staff Physician] - See instructions Liz Cheney APRN [Primary Care Provider] - See instructions Activity Restrictions/Add. Instructions Additional Instructions/Restrictions: Call your family doctor to establish care for this visit to the emergency department and schedule follow-up within 48 hours to ensure improvement. If you have any worsening of your condition or any other concerning signs or symptoms, return to the emergency department or your primary care doctor for further evaluation. Gastroenterology information here, call to schedule an appointment to have upper endoscopy to formally diagnose why you may be having globus sensation in your throat. Clinical Impressions Clinical Impression: Globus sensation Print Language Print Language: Citizen Of [place] Discharge ED Provider: Valentin Ayala General Adult HPI <Stacie Fuentes APRN - Last Filed: 08/21/24 17:41> General Chief complaint: Upper Respiratory Infection Stated complaint: Sore throat Time Seen by Provider: 08/21/24 14:00 Mode of Arrival: Ambulatory Source of Information: Patient Description of Symptoms (Recalled from ER Triage Doc. by RN): Pt states he has had a sore throat x1 month. Pt states some days it is worse than others. in the last couple days he has developed a runny nose and slight cough History of Present Illness HPI narrative: patient is a 24-year-old male no significant PMHx who presents to the ED with complaints of feeling a lump when swallowing x 1 month. Patient states that at times he has a sore throat in the morning but it goes away throughout the day, states the feeling of having a lump in his throat is constant. Related Data Home Medications ?Medication ?Instructions ?Recorded ?Confirmed cholecalciferol (vitamin D3) 1,250 1,250 mcg PO .COMPLEX 09/23/23 12/18/23 mcg (50,000 unit) capsule Previous Rx's ?Medication ?Instructions ?Recorded azelastine 137 mcg (0.1 %) nasal 1 spray intranasal BID #30 mL 11/20/23 spray hydroxyzine HCl 25 mg tablet 25 mg PO Q6H PRN nausea and 01/14/24 vomiting #30 tabs Allergies Allergy/AdvReac Type Severity Reaction Status Date / Time No Known Allergies Allergy Verified 08/21/24 14:14 [facility] <Stacie Fuentes APRN - Last Filed: 08/21/24 17:41> [facility] Disclaimer: The information contained in this section may have been updated after the patient was seen, as this information can be updated by other users. 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) Diabetes Coronary artery disease Heart attack 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 Smoking Status: Never smoker alcohol intake: never substance use type: denies use current occupational status: employed Travel in the last 8 weeks: None household members: other housing: house marital status: single Have you lived/traveled outside [place] in past 30 days?: No Contact w/someone who lives/traveled outside US past 30 days?: No Exposure to someone with infectious disease in past 14 days?: No Do you have a fever (greater than 100.4 F or 38 C)?: No Have you tested positive for COVID-19: No Exposed to someone with COVID-19 in past 14 days?: No Do you have a sore throat?: Yes Do you have a cough?: No Do you have any weakness?: No Do you have any diarrhea?: No Are you experiencing any unusual bleeding?: No Do you have any muscle aches/pain?: No Do you have any abdominal pain?: No Are you experiencing loss of taste or smell?: No Other 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 Have you received the Flu Vaccine for this season: No Have you received the Pneumonia Vaccine: No <Jt Holman MD - Last Filed: 08/21/24 15:32> ROS Obtained: Yes Systems reviewed as appropriate & no additional complaints except as documented Physical Exam <Stacie Fuentes APRN - Last Filed: 08/21/24 17:41> General General appearance: alert and in no apparent distress Head Head exam: atraumatic and normocephalic Eye Eye exam: Present normal appearance and PERRL ENT ENT exam: Present normal exam, normal oropharynx and mucous membranes moist Neck Neck exam: Present normal inspection, full ROM and trachea midline; Absent tenderness or lymphadenopathy Chest Chest inspection: Present normal inspection and symmetric chest wall rise; Absent tenderness Abdominal Exam Abdominal exam: Present soft and normal bowel sounds; Absent tenderness Extremities Exam Extremities exam: Present normal inspection and full ROM Back Exam Back exam: Present normal inspection and full ROM Psychiatric Psychiatric exam: Present normal affect and normal mood Skin Skin exam: Present warm and dry <Jt Holman MD - Last Filed: 08/21/24 15:32> General General appearance: alert Respiratory Respiratory exam: Absent respiratory distress Cardiovascular Cardiovascular exam: Present regular rate Neurological Exam Neurological exam: Present alert Medical Decision Making <Stacie Fuentes APRN - Last Filed: 08/21/24 17:41> Medical Records Screening: Per USPSTF and CDC recommendations, given the prevalence of disease in our region, it is our hospital?s policy to screen for HIV and viral Hepatitis for all patients aged 18 and over and those with ongoing risk factors. Vital Signs: 08/21/24 13:55 08/21/24 17:18 Temperature 97.8 F 97.8 F Temperature Source Oral Oral Pulse Rate 76 Pulse Rate [Right] 76 Respiratory Rate 18 18 Blood Pressure 150/82 H Blood Pressure [Right Arm] 150/82 H Blood Pressure Mean [Right Arm] 104 Blood Pressure Source Automatic Cuff Blood Pressure Source [Right Arm] Automatic Cuff Blood Pressure Position Sitting Blood Pressure Position [Right Arm] Sitting 02 Sat by Pulse Oximetry 98 Oxygen Delivery Method Room Air Room Air Lab Data Lab Results 08/21/24 14:00: SARS-CoV-2 (PCR) Not detected, Influenza A Untype (PCR) Not detected, Influenza Type B (PCR) Not detected, Group A Strep Rapid Negative 08/21/24 15:12: WBC 7.1, RBC 5.08, Hgb 16.1, Hct 45.0, MCV 88.6, MCH 31.7 H, M CHC 35.8 H, RDW 12.6, Plt Count 289, MPV 10.9 H, Neut % (Auto) 57.9, Lymph % (Auto) 29.8, [place] % (Auto) 6.8, Eos % (Auto) 4.4, Baso % (Auto) 1.0, Neut # (Auto) 4.1, Lymph # (Auto) 2.1, [place] # (Auto) 0.5, Eos # (Auto) 0.3, Baso # (Auto) 0.1, Sodium 142, Potassium 4.1, Chloride 106, Carbon Dioxide 28, Anion Gap 12.1, BUN 13, Creatinine 0.80, Estimated Creat Clear 154, Estimated GFR 117, Est GFR ( Amer) 141, Glucose 97, Calcium 9.7, Total Bilirubin 0.4, AST 33, ALT 43, Alkaline Phosphatase 55, Total Protein 7.9, Albumin 5.1 H, Globulin 2.8, Albumin/Globulin Ratio 1.8 08/21/24 15:12 08/21/24 15:12 Orders (Tests/Meds): ED MEDICATIONS Discontinued Medications Generic Name Dose Route Start Last Admin Trade Name Freq PRN Reason Stop Dose Admin Iopamidol 75 ml 08/21/24 15:35 08/21/24 15:36 Iopamidol-370 (76%);100ml Bottle IV 08/21/24 15:36 75 ml ONCE ONE Administration Sodium Chloride 10 ml 08/21/24 15:35 08/21/24 15:36 Sodium Chloride 0.9% 10ml Syr (Rad Only) IV 09/20/24 15:34 10 ml NEEDED PRN Administration Maintain IV Site ORDERS Category Date Time Status CT soft tissue neck w con Stat Cat Scan 08/21/24 14:17 Completed CBC w/Auto Diff [Complete Blood Count Auto Diff] Stat Lab 08/21/24 15:12 Completed CMP [Comprehensive Metabolic Panel] Stat Lab 08/21/24 15:12 Completed Rapid PCR Covid and Flu A/B Stat Lab 08/21/24 14:00 Completed Strep Scrn Group A (Rapid) Stat Lab 08/21/24 14:00 Completed Strep Screen Confirmation Stat Micro 08/21/24 14:00 Received Medical Decision Narrative: In summary, patient is a 24-year-old male no significant PMHx who presents to the ED with complaints of feeling a lump when swallowing x 1 month. Patient states that at times he has a sore throat in the morning but it goes away throughout the day, states the feeling of having a lump in his throat is constant. Patient states it may have been going on longer than 1 month he is unsure. Reports occasional alcohol use. Has used chewing tobacco x 10 years. Does not vape or use cigarettes. No history of getting food stuck in his throat or choking. Denies fever, chills, body aches, posterior neck pain, neck stiffness, chest pain, shortness of breath, abdominal pain, nausea, vomiting, dysuria. Upon initial exam, patient is alert, oriented and cooperative. He is hemodynamically stable. His physical exam is unremarkable. Airway is patent. Differential diagnosis include strep, COVID, influenza, dry mouth, mass, cancer, among others. Discussed with patient that we will obtain imaging and lab work. He is agreeable to plan of care. CBC unremarkable for any leukocytosis, stable H&H. Patient negative for strep, COVID, influenza. Discussed with patient that although his work appears negative he will need to follow-up as scheduled to have a scope performed. He verbalized understanding. Advised him to follow-up with his PCP, return to the ED for any worsening of condition. Jt Holman: I was consulted by the FABY, and we discussed the complexity of the problems being addressed. I approved the treatment and management plan for this patient's care in the emergency department, thus performing a substantive portion of the medical decision making. I agree with initial workup and imaging, imaging pending at time of transfer of care to the oncoming physician, Dr. Ayala. <Jt Holman MD - Last Filed: 08/21/24 15:32> Sid Inquiry Pt receiving controlled substance: No Vital Signs: 08/21/24 13:55 08/21/24 17:18 Temperature 97.8 F 97.8 F Temperature Source Oral Oral Pulse Rate 76 Pulse Rate [Right] 76 Respiratory Rate 18 18 Blood Pressure 150/82 H Blood Pressure [Right Arm] 150/82 H Blood Pressure Mean [Right Arm] 104 Blood Pressure Source Automatic Cuff Blood Pressure Source [Right Arm] Automatic Cuff Blood Pressure Position Sitting Blood Pressure Position [Right Arm] Sitting 02 Sat by Pulse Oximetry 98 Oxygen Delivery Method Room Air Room Air Lab Data Lab Results 08/21/24 14:00: SARS-CoV-2 (PCR) Not detected, Influenza A Untype (PCR) Not detected, Influenza Type B (PCR) Not detected, Group A Strep Rapid Negative 08/21/24 15:12: WBC 7.1, RBC 5.08, Hgb 16.1, Hct 45.0, MCV 88.6, MCH 31.7 H, M CHC 35.8 H, RDW 12.6, Plt Count 289, MPV 10.9 H, Neut % (Auto) 57.9, Lymph % (Auto) 29.8, [place] % (Auto) 6.8, Eos % (Auto) 4.4, Baso % (Auto) 1.0, Neut # (Auto) 4.1, Lymph # (Auto) 2.1, [place] # (Auto) 0.5, Eos # (Auto) 0.3, Baso # (Auto) 0.1, Sodium 142, Potassium 4.1, Chloride 106, Carbon Dioxide 28, Anion Gap 12.1, BUN 13, Creatinine 0.80, Estimated Creat Clear 154, Estimated GFR 117, Est GFR ( Amer) 141, Glucose 97, Calcium 9.7, Total Bilirubin 0.4, AST 33, ALT 43, Alkaline Phosphatase 55, Total Protein 7.9, Albumin 5.1 H, Globulin 2.8, Albumin/Globulin Ratio 1.8 Orders (Tests/Meds): ED MEDICATIONS Discontinued Medications Generic Name Dose Route Start Last Admin Trade Name Freq PRN Reason Stop Dose Admin Iopamidol 75 ml 08/21/24 15:35 08/21/24 15:36 Iopamidol-370 (76%);100ml Bottle IV 08/21/24 15:36 75 ml ONCE ONE Administration Sodium Chloride 10 ml 08/21/24 15:35 08/21/24 15:36 Sodium Chloride 0.9% 10ml Syr (Rad Only) IV 09/20/24 15:34 10 ml NEEDED PRN Administration Maintain IV Site ORDERS Category Date Time Status CT soft tissue neck w con Stat Cat Scan 08/21/24 14:17 Completed CBC w/Auto Diff [Complete Blood Count Auto Diff] Stat Lab 08/21/24 15:12 Completed CMP [Comprehensive Metabolic Panel] Stat Lab 08/21/24 15:12 Completed Rapid PCR Covid and Flu A/B Stat Lab 08/21/24 14:00 Completed Strep Scrn Group A (Rapid) Stat Lab 08/21/24 14:00 Completed Strep Screen Confirmation Stat Micro 08/21/24 14:00 Received Medical Decision Narrative: Jt Holman: I was consulted by the FABY, and we discussed the complexity of the problems being addressed. I approved the treatment and management plan for this patient's care in the emergency department, thus performing a substantive portion of the medical decision making. I agree with initial workup and imaging, imaging pending at time of transfer of care to the [facility] physician, Dr. Ayala. <Valentin Ayala MD - Last Filed: 08/21/24 17:46> Vital Signs: 08/21/24 13:55 08/21/24 17:18 Temperature 97.8 F 97.8 F Temperature Source Oral Oral Pulse Rate 76 Pulse Rate [Right] 76 Respiratory Rate 18 18 Blood Pressure 150/82 H Blood Pressure [Right Arm] 150/82 H Blood Pressure Mean [Right Arm] 104 Blood Pressure Source Automatic Cuff Blood Pressure Source [Right Arm] Automatic Cuff Blood Pressure Position Sitting Blood Pressure Position [Right Arm] Sitting 02 Sat by Pulse Oximetry 98 Oxygen Delivery Method Room Air Room Air Lab Data Lab Results 08/21/24 14:00: SARS-CoV-2 (PCR) Not detected, Influenza A Untype (PCR) Not detected, Influenza Type B (PCR) Not detected, Group A Strep Rapid Negative 08/21/24 15:12: WBC 7.1, RBC 5.08, Hgb 16.1, Hct 45.0, MCV 88.6, MCH 31.7 H, M CHC 35.8 H, RDW 12.6, Plt Count 289, MPV 10.9 H, Neut % (Auto) 57.9, Lymph % (Auto) 29.8, [place] % (Auto) 6.8, Eos % (Auto) 4.4, Baso % (Auto) 1.0, Neut # (Auto) 4.1, Lymph # (Auto) 2.1, [place] # (Auto) 0.5, Eos # (Auto) 0.3, Baso # (Auto) 0.1, Sodium 142, Potassium 4.1, Chloride 106, Carbon Dioxide 28, Anion Gap 12.1, BUN 13, Creatinine 0.80, Estimated Creat Clear 154, Estimated GFR 117, Est GFR ( Amer) 141, Glucose 97, Calcium 9.7, Total Bilirubin 0.4, AST 33, ALT 43, Alkaline Phosphatase 55, Total Protein 7.9, Albumin 5.1 H, Globulin 2.8, Albumin/Globulin Ratio 1.8 Orders (Tests/Meds): ED MEDICATIONS Discontinued Medications Generic Name Dose Route Start Last Admin Trade Name Freq PRN Reason Stop Dose Admin Iopamidol 75 ml 08/21/24 15:35 08/21/24 15:36 Iopamidol-370 (76%);100ml Bottle IV 08/21/24 15:36 75 ml ONCE ONE Administration Sodium Chloride 10 ml 08/21/24 15:35 08/21/24 15:36 Sodium Chloride 0.9% 10ml Syr (Rad Only) IV 09/20/24 15:34 10 ml NEEDED PRN Administration Maintain IV Site ORDERS Category Date Time Status CT soft tissue neck w con Stat Cat Scan 08/21/24 14:17 Completed CBC w/Auto Diff [Complete Blood Count Auto Diff] Stat Lab 08/21/24 15:12 Completed CMP [Comprehensive Metabolic Panel] Stat Lab 08/21/24 15:12 Completed Rapid PCR Covid and Flu A/B Stat Lab 08/21/24 14:00 Completed Strep Scrn Group A (Rapid) Stat Lab 08/21/24 14:00 Completed Strep Screen Confirmation Stat Micro 08/21/24 14:00 Received Medical Decision Narrative: In summary, patient is a 24-year-old male no significant PMHx who presents to the ED with complaints of feeling a lump when swallowing x 1 month. Patient states that at times he has a sore throat in the morning but it goes away throughout the day, states the feeling of having a lump in his throat is constant. Patient states it may have been going on longer than 1 month he is unsure. Reports occasional alcohol use. Has used chewing tobacco x 10 years. Does not vape or use cigarettes. No history of getting food stuck in his throat or choking. Denies fever, chills, body aches, posterior neck pain, neck stiffness, chest pain, shortness of breath, abdominal pain, nausea, vomiting, dysuria. Upon initial exam, patient is alert, oriented and cooperative. He is hemodynamically stable. His physical exam is unremarkable. Airway is patent. Differential diagnosis include strep, COVID, influenza, dry mouth, mass, cancer, among others. Discussed with patient that we will obtain imaging and lab work. He is agreeable to plan of care. CBC unremarkable for any leukocytosis, stable H&H. Patient negative for strep, COVID, influenza. Discussed with patient that although his work appears negative he will need to follow-up as scheduled to have a scope performed. He verbalized understanding. Advised him to follow-up with his PCP, return to the ED for any worsening of condition. Jt Holman: I was consulted by the FABY, and we discussed the complexity of the problems being addressed. I approved the treatment and management plan for this patient's care in the emergency department, thus performing a substantive portion of the medical decision making. I agree with initial workup and imaging, imaging pending at time of transfer of care to the oncoming physician, Dr. Ayala. I was consulted by the FABY, and we discussed the complexity of the problems being addressed. I approved the treatment and management plan for this patient's care in the Emergency Department, thus performing a substantive portion of the medical decision making. Valentin Ayala MD Critical Care <Jt Holman MD - Last Filed: 08/21/24 15:32> Critical Care Time Critical Care Time: No
[2024-08-21 14:17] LABS: Strep Scrn Group A (Rapid) Negative (Negative)
--- NOTE | 2024-08-21 14:17 | CT_ITS ---
FINAL REPORT TECHNIQUE: Thin section axial CT images with coronal reformats were obtained through the neck after the administration of IV contrast. This study was performed with techniques to keep radiation doses as low as reasonably achievable (ALARA). Individualized dose reduction techniques using automated exposure control or adjustment of mA and/or kV according to the patient''s size were employed. CLINICAL HISTORY: Sensation of a lump when swallowing for 1 month FINDINGS: There is no adenopathy or mass lesion present. The thyroid is unremarkable. Limited images of the lung apices are unremarkable. The glottis and supraglottic areas are unremarkable. No acute osseous abnormality is identified. There is extensive, lobular mucoperiosteal thickening in the left maxillary sinus which may represent a retention cyst versus a polyp. There is mucoperiosteal thickening and an air-fluid level in the right cell of the frontal sinus. IMPRESSION: No significant mass or edema. Acute on chronic right frontal and chronic left maxillary sinusitis. Reviewed, Interpreted and Dictated by Brendan Johnson MD Transcribed by Chrissy Rios Authenticated and [facility]
[2024-08-21 15:20] LABS: Basophils # 0.1 K/mm3 (0-0.2); Eosinophils # 0.3 K/mm3 (0.0-0.4); Eosinophils % 4.4 % (0.1-12.0); Hemoglobin 16.1 g/dL (14.1-18.0); Lymphocytes # 2.1 K/mm3 (0.7-4.5); Lymphocytes % 29.8 % (10-50); Mean Corpuscular HGB Conc 35.8 g/dL (31.8-35.4); Mean Corpuscular Hemoglobin 31.7 pg (27.0-31.2); Mean Corpuscular Volume 88.6 fl (80-94); Mean Platelet Volume 10.9 fl (7.4-10.4); Monocytes # 0.5 K/mm3 (0.1-1.0); Monocytes % 6.8 % (1.7-9.3); Neutrophils # 4.1 K/mm3 (1.8-7.8); Neutrophils % 57.9 % (37.0-80.0); Platelet Count 289 K/mm3 (142-424); Red Blood Count 5.08 M/mm3 (4.60-6.20); Red Cell Distribution Width 12.6 % (11.5-17.5); White Blood Count 7.1 K/mm3 (4.8-10.8)
[2024-08-21 15:25] LABS: Albumin Level 5.1 g/dl (3.5-5.0); Chloride 106 mmol/L (98-107); Potassium 4.1 mmoL/L (3.5-5.1); Sodium 142 mmol/L (136-145)
[2024-08-21 15:28] LABS: Alanine Aminotransferase 43 U/L (12-78); Albumin/Globulin Ratio 1.8 (1.1-1.8); Alkaline Phosphatase 55 U/L (38-126); Anion Gap 12.1 mEq/L (5-15); Aspartate Amino Transferase 33 U/L (17-59); Bilirubin,Total 0.4 mg/dl (0.2-1.3); Blood Urea Nitrogen 13 mg/dl (9-20); Carbon Dioxide 28 mmol/L (22.0-30.0); Creatinine Clearance Estimated 154 mL/min (50-200); Estimated Glomerular Filt Rate 117 ml/min (>60); GFR (African American) 141 ML/MIN (>60); Globulin 2.8 g/dL (1.3-3.2); Total Protein,Serum 7.9 g/dl (6.3-8.2)
[2024-08-21 15:29] LABS: Calcium 9.7 mg/dl (8.4-10.2); Glucose 97 mg/dl (74-100)
[2024-08-21] MEDS: SODIUM CHLORIDE 0.9% 10ML SYR (RAD ONLY) 10 ML IV (15:36)
[2024-08-21] MEDS: IOPAMIDOL-370 (76%);100ML BOTTLE 75 ML IV (15:36)
[2024-08-21 17:18] VITALS: BP 150/82; PULSE 76; RESP 18; TEMP 36.6; O2SAT 98
== END 2024-08-21 17:19 | disposition home or self-care (01) ==
PROVIDERS: Emergency Medicine; Nurse Practitioner; Emergency Provider Emergency Medicine; PCP Nurse Practitioner
DX: R09.A2 Foreign body sensation, throat (principal); R22.1 Localized swelling, mass and lump, neck; J02.9 Acute pharyngitis, unspecified; R05.9 Cough, unspecified; R09.89 Other specified symptoms and signs involving the circulatory and respiratory systems
CPT/HCPCS: 70491; 80053; 85025; 87430; 87636; 99285; Q9967